=== PATIENT | female | born 1940 | race Caucasian/White ===

== ENCOUNTER 2020-11-04 07:42 | Outpatient (REF) | payer MEDICARE, SELFPAY ==
[2020-11-04 08:18] LABS: Basophils Percent Auto 0.9 % (0-2); Eosinophils Absolute Auto 0.4 X10*3/uL (0.0-0.4); Eosinophils Percent Auto 7.5 % (0-4); Hematocrit 40.1 % (37-47); Hemoglobin 13.2 g/dl (12.0-16.0); Imm Gran Abs Auto 0.01 X10*3/uL (0.00-0.03); Imm Gran Pct Auto 0.2 % (0.0-0.4); Lymphocytes Absolute Auto 1.6 X10*3/uL (1.2-4.9); Lymphocytes Percent Auto 33.3 % (20-40); MANUAL DIFF FLAG NO; Mean Corpuscular HGB Conc 32.9 g/dl (31.0-35.0); Mean Corpuscular Hemoglobin 31.3 pg (27.0-33.0); Mean Platelet Volume 10.3 fL (9.4-12.3); Monocytes Absolute Auto 0.4 X10*3/uL (0.1-1.2); Neutrophils Absolute Auto 2.3 X10*3/uL (2.0-8.3); Neutrophils Percent Auto 49.1 % (45-73); Platelet Count 197 X10*3/uL (160-400); Red Blood Count 4.22 X10*6/uL (4.20-5.50); Red Cell Distribution Width 13.1 % (11.0-16.0); White Blood Count 4.7 X10*3/uL (4.8-10.8)
[2020-11-04 09:28] LABS: Alanine Aminotransferase 35 U/L (0-31); Albumin Level 3.8 g/dL (3.5-5.0); Alkaline Phosphatase 65 U/L (39-117); Anion Gap 11 (12-20); Aspartate Amino Transferase 37 U/L (5-31); Bilirubin Total 1.5 mg/dL (0.0-1.0); Blood Urea Nitrogen 21 mg/dL (9-16); C Reactive Protein 0.13 mg/dL (< or = 0.50); Calcium 8.7 mg/dL (8.4-10.2); Carbon Dioxide 28 mmol/L (22-29); Chloride 106 mmol/L (96-108); Cholesterol 160 mg/dL; Estimated Glomerular Filt Rate 49; Glucose Fasting 133 mg/dL (60-99); HDL Cholesterol 52 mg/dL; LDL Cholesterol Calculated 84 mg/dl; Lipase < 4 U/L (8-78); Potassium 4.2 mmol/l (3.3-5.1); Sodium 141 mmol/L (135-145); Total Protein 6.2 g/dL (6.5-8.0); Triglycerides 121 mg/dL
== END 2020-11-04 07:43 | disposition home or self-care (01) ==
LOC: HO.LAB 07:42
PROVIDERS: PCP Internal Medicine; Visit Provider Internal Medicine
DX: I10 Essential (primary) hypertension (principal); J44.9 Chronic obstructive pulmonary disease, unspecified; E78.00 Pure hypercholesterolemia, unspecified; R10.9 Unspecified abdominal pain
CPT/HCPCS: 36415; 80053; 80061; 83690; 85025; 86140

== ENCOUNTER 2020-11-13 09:52 | Outpatient (REF) | payer MEDICARE, SELFPAY ==
--- NOTE | 2020-11-13 09:55 | CT_ITS ---
EXAMINATION: CT ABDOMEN WITHOUT AND WITH CONTRAST CLINICAL INFORMATION: Epigastric pain. History of gastric lap band. COMPARISON: Previous CT most recent December 2019 TECHNIQUE: Contiguous axial thin section helical images of the abdomen were performed before and after the administration of oral contrast and 85 mL of Omnipaque 350 intravenous contrast. The data set was reformatted in the coronal and sagittal planes and reviewed on an independent workstation. This CT examination was performed using dose optimization techniques as appropriate, variously including the following: *Automated exposure control *Adjustment of mA and/or kV according to patient size (this includes techniques or standardized protocols for targeted exams where dose is matched to indication/reason for exam; i.e. extremities or head) *Use of iterative reconstruction technique DLP: 419 mGy-cm FINDINGS: LUNG BASES: The lung bases are clear. LIVER, GALLBLADDER, AND BILIARY TREE: The liver is unremarkable. No focal liver lesion. Normal gallbladder. No biliary duct dilatation. PANCREAS: There is atrophy or fatty infiltration of the head and body of the pancreas. There is remaining pancreatic tissue seen in the tail of the pancreas. There is an enhancing lesion in the tail of the pancreas measuring 6 x 10 mm axial image 18 series 7. This abuts the splenic artery and may represent small splenic artery aneurysm. It is difficult to exclude an enhancing hypervascular mass such as an islet cell neoplasm. This is similar appearing to December 2019 exam. The main pancreatic duct does not appear dilated. SPLEEN: Unremarkable ADRENAL GLANDS AND KIDNEYS: Unremarkable BOWEL LOOPS: There is a gastric lap band. The phi angle measures 57 which is upper limit of normal. There is wall thickening of the distal thoracic esophagus versus esophageal hernia. This is increased compared to previous exam. There is mild diverticulosis of the colon. Visualized small and large bowel is otherwise unremarkable. LYMPH NODES: Normal. VASCULAR: There is evidence of severe atherosclerotic disease. The abdominal aorta is normal in caliber. There is BONES: There are degenerative changes of the spine. CT/CT abdomen wo/w con IMPRESSION: Gastric lap band. The phi angle measures 57 which is upper limit of normal. Wall thickening of the distal thoracic esophagus versus esophageal hernia. Atrophic head and body of the pancreas. 6 x 10 mm enhancing area in the tail of the pancreas immediately adjacent to the splenic artery probably representing a small splenic artery aneurysm. It is difficult to exclude an enhancing pancreatic lesion such as an islet cell neoplasm. Follow-up abdominal CTA is recommended. Severe atherosclerotic disease. Mild diverticulosis.
[2020-11-13] MEDS: iohexoL 350 MG/ML 100 ML INFUS..BTL 85 ML IV (10:50)
== END 2020-11-13 09:53 | disposition home or self-care (01) ==
LOC: HO.CT 09:52
PROVIDERS: PCP Internal Medicine; Visit Provider Internal Medicine
DX: R10.816 Epigastric abdominal tenderness (principal); Z98.84 Bariatric surgery status
CPT/HCPCS: 74170; Q9967

== ENCOUNTER 2020-12-09 14:47 | Outpatient (REF) | payer MEDICARE, SELFPAY ==
[2020-12-09 15:30] LABS: Alanine Aminotransferase 27 U/L (0-31); Albumin Level 4.2 g/dL (3.5-5.0); Alkaline Phosphatase 77 U/L (39-117); Aspartate Amino Transferase 36 U/L (5-31); Bilirubin Direct 0.6 mg/dL (0.0-0.5); Bilirubin Total 1.8 mg/dL (0.0-1.0); Blood Urea Nitrogen 20 mg/dL (9-16); Estimated Glomerular Filt Rate 51; Lipase < 4 U/L (8-78); Total Protein 6.8 g/dL (6.5-8.0)
[2020-12-11 11:38] LABS: Carbohydrate Antigen 19-9 9 U/mL (<34)
== END 2020-12-09 14:48 | disposition home or self-care (01) ==
LOC: HO.LAB 14:47
PROVIDERS: PCP Internal Medicine; Visit Provider Internal Medicine
DX: R93.5 Abnormal findings on diagnostic imaging of other abdominal regions, including retroperitoneum (principal)
CPT/HCPCS: 36415; 80076; 82565; 83690; 84520; 86301

== ENCOUNTER 2020-12-22 10:05 | Outpatient (REF) | payer MEDICARE, SELFPAY ==
--- NOTE | ~2020-12-22 | CT_ITS ---
EXAMINATION: CT ANGIOGRAM ABDOMEN CLINICAL INFORMATION: Question of splenic artery aneurysm versus pancreatic lesion COMPARISON: Previous CT scans of the abdomen and pelvis most recent November 2020 TECHNIQUE: Multiple axial images were obtained through the abdomen following the administration of 80 mL Omnipaque 350 intravenous contrast. Images were reviewed on a dedicated 3-D workstation. This CT examination was performed using dose optimization techniques as appropriate, variously including the following: *Automated exposure control *Adjustment of mA and/or kV according to patient size (this includes techniques or standardized protocols for targeted exams where dose is matched to indication/reason for exam; i.e. 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 No other aneurysm is seen. The lung bases are clear. The liver and gallbladder are unremarkable. There is no biliary duct dilatation. The spleen is unremarkable. There are atrophic changes/fatty infiltration of the pancreas. The pancreas is otherwise unremarkable. The kidneys are unremarkable. There is stool throughout the colon questionable for constipation. There is a gastric lap band. This is unchanged in position from November 2020 exam. There is question of mild wall thickening of the distal thoracic esophagus. No hernia is seen. No ascites or lymphadenopathy is seen. There is severe degenerative changes of the spine. Vascular: There is evidence of atherosclerotic disease of the abdominal aorta. No aneurysm is seen. The celiac axis, SMA and INEZ are patent. There is atherosclerotic plaque and mild stenoses at the origin of the celiac axis, SMA and INEZ. There are single bilateral renal arteries. There are mild stenoses at the origin of the bilateral renal arteries, left greater than right. 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 Fatty infiltration of the pancreas. No pancreatic lesion seen. Stable appearance of gastric lap band and question wall thickening of the distal thoracic esophagus. Stool throughout the colon questionable for constipation.
[2020-12-22] MEDS: iohexoL 350 MG/ML 100 ML INFUS..BTL 80 ML IV (10:38)
== END 2020-12-22 10:06 | disposition home or self-care (01) ==
LOC: HO.CT 10:05
PROVIDERS: PCP Internal Medicine; Visit Provider Internal Medicine
DX: R93.5 Abnormal findings on diagnostic imaging of other abdominal regions, including retroperitoneum (principal)
CPT/HCPCS: 74175; Q9967

== ENCOUNTER 2021-01-25 10:23 | Outpatient (REF) | payer MEDICARE, SELFPAY ==
--- NOTE | ~2021-01-25 | US_ITS ---
EXAMINATION: US EXTRACRANIAL CAROTID DUPLEX, BILATERAL CLINICAL INFORMATION: Left carotid bruit COMPARISON: None TECHNIQUE: Real-time ultrasound and Doppler techniques (integrating B-mode 2-D vascular images, Doppler spectral analysis and color-flow Doppler imaging) were utilized to interrogate the extracranial carotid arteries, the vertebral arteries and proximal subclavian arteries bilaterally. The degree of stenosis is determined by criteria similar to NASCET. FINDINGS: Right Side: 1. There is minimal soft atherosclerotic plaque seen in the bifurcation/proximal ICA region. 2. The common carotid artery PSV proximally is 77.9 cm/s and distally 80.7 cm/s. 3. The proximal internal carotid artery velocities are 64.4 cm/s systolic and 15.2 cm/s diastolic. 4. The proximal external carotid artery PSV is 111 cm/s. 5. The vertebral artery shows antegrade flow. 6. The subclavian artery waveforms are normal. Left Side: 1. There is minimal soft atherosclerotic plaque seen in the bifurcation/proximal ICA region. 2. The common carotid artery PSV proximally is 71.1 cm/s and distally 76.4 cm/s. 3. The proximal internal carotid artery velocities are 53.7 cm/s systolic and 13.3 cm/s diastolic. 4. The proximal external carotid artery PSV is 61.6 cm/s. 5. The vertebral artery shows antegrade flow. 6. The subclavian artery waveforms are normal. US/US carotid duplex BI IMPRESSION: 1. RIGHT: No hemodynamically significant stenosis seen. 2. LEFT: No hemodynamically significant stenosis seen. 3. There is normal antegrade flow seen in both vertebral arteries.
== END 2021-01-25 10:24 | disposition home or self-care (01) ==
LOC: HO.US 10:23
PROVIDERS: Visit Provider Internal Medicine
DX: R09.89 Other specified symptoms and signs involving the circulatory and respiratory systems (principal)
CPT/HCPCS: 93880

== ENCOUNTER 2021-04-07 09:04 | Outpatient (REF) | payer MEDICARE, SELFPAY ==
--- NOTE | ~2021-04-07 | MM_ITS ---
EXAMINATION: MM SCREENING DIGITAL BREAST TOMOSYNTHESIS, BILATERAL CLINICAL INFORMATION: Screening. Asymptomatic. The lifetime risk of breast cancer based on the Tyrer-Cuzick Model is 2%. COMPARISON: Mammography: 11/22/2019, 09/25/2018, 09/19/2017 TECHNIQUE: Digital breast tomosynthesis is performed in both the craniocaudal and mediolateral oblique views along with computer-aided detection (CAD). Synthesized 2D images are generated from the tomosynthesis. FINDINGS: There are scattered areas of fibroglandular density (ACR BI-RADS breast composition Category b). There are no significant masses, abnormal calcifications, or other abnormalities. The axilla and skin contours are unremarkable. No significant changes. MM/MM tomosynthesis screening BI IMPRESSION: No mammographic evidence of malignancy. ASSESSMENT: BI-RADS 1: Negative RECOMMENDATION: Routine annual mammography screening. This patient's information was entered into a reminder system with a target due date for their next mammogram.
== END 2021-04-07 09:05 | disposition home or self-care (01) ==
LOC: HO.MAMMO 09:04
PROVIDERS: Visit Provider Internal Medicine
DX: Z12.31 Encounter for screening mammogram for malignant neoplasm of breast (principal)
CPT/HCPCS: 77063; 77067

== ENCOUNTER 2021-04-15 08:53 | Outpatient (REF) | payer MEDICARE, SELFPAY ==
[2021-04-15 10:07] LABS: Hematocrit 38.6 % (37-47); Hemoglobin 12.4 g/dl (12.0-16.0); Mean Corpuscular HGB Conc 32.1 g/dl (31.0-35.0); Mean Corpuscular Hemoglobin 30.9 pg (27.0-33.0); Mean Corpuscular Volume 96.3 fL (80-98); Mean Platelet Volume 10.6 fL (9.4-12.3); Platelet Count 215 X10*3/uL (160-400); Red Blood Count 4.01 X10*6/uL (4.20-5.50); Red Cell Distribution Width 13.4 % (11.0-16.0); White Blood Count 5.5 X10*3/uL (4.8-10.8)
[2021-04-15 10:12] LABS: Estimated Average Glucose 128 mg/dL; Hemoglobin A1c % 6.1 %
[2021-04-15 10:21] LABS: Alanine Aminotransferase 20 U/L (0-31); Alkaline Phosphatase 82 U/L (39-117); Anion Gap 11 (12-20); Aspartate Amino Transferase 30 U/L (5-31); Bilirubin Direct 0.4 mg/dL (0.0-0.5); Bilirubin Total 1.1 mg/dL (0.0-1.0); Blood Urea Nitrogen 31 mg/dL (9-16); Calcium 9.2 mg/dL (8.4-10.2); Carbon Dioxide 28 mmol/L (22-29); Chloride 107 mmol/L (96-108); Cholesterol 165 mg/dL; Estimated Glomerular Filt Rate 40; Glucose Random 121 mg/dL (60-115); HDL Cholesterol 54 mg/dL; LDL Cholesterol Calculated 93 mg/dl; Magnesium 2.6 mg/dL (1.6-2.6); Potassium 4.6 mmol/L (3.3-5.1); Sodium 141 mmol/L (135-145); Total Protein 6.4 g/dL (6.5-8.0); Triglycerides 93 mg/dL
== END 2021-04-15 08:54 | disposition home or self-care (01) ==
LOC: HO.LAB 08:53
PROVIDERS: Absent Provider Internal Medicine; PCP Internal Medicine; Visit Provider Internal Medicine Cardiovascular Disease
DX: E78.2 Mixed hyperlipidemia (principal); I10 Essential (primary) hypertension; I25.810 Atherosclerosis of coronary artery bypass graft(s) without angina pectoris; R73.01 Impaired fasting glucose
CPT/HCPCS: 36415; 80048; 80061; 80076; 83036; 83735; 85027

== ENCOUNTER 2021-04-30 14:50 | Outpatient (REF) | payer MEDICARE, SELFPAY ==
[2021-04-30 15:11] LABS: MANUAL DIFF FLAG NO
[2021-04-30 15:19] LABS: Basophils Percent Auto 0.7 % (0-2); Eosinophils Absolute Auto 0.5 X10*3/uL (0.0-0.4); Eosinophils Percent Auto 7.5 % (0-4); Hematocrit 36.8 % (37-47); Hemoglobin 12.1 g/dl (12.0-16.0); Imm Gran Abs Auto 0.02 X10*3/uL (0.00-0.03); Imm Gran Pct Auto 0.3 % (0.0-0.4); Lymphocytes Absolute Auto 0.9 X10*3/uL (1.2-4.9); Lymphocytes Percent Auto 14.1 % (20-40); Mean Corpuscular HGB Conc 32.9 g/dl (31.0-35.0); Mean Corpuscular Hemoglobin 31.2 pg (27.0-33.0); Mean Corpuscular Volume 94.8 fL (80-98); Mean Platelet Volume 9.8 fL (9.4-12.3); Monocytes Absolute Auto 0.5 X10*3/uL (0.1-1.2); Monocytes Percent Auto 7.5 % (2-11); Neutrophils Absolute Auto 4.2 X10*3/uL (2.0-8.3); Neutrophils Percent Auto 69.9 % (45-73); Platelet Count 292 X10*3/uL (160-400); Red Blood Count 3.88 X10*6/uL (4.20-5.50); Red Cell Distribution Width 13.2 % (11.0-16.0)
[2021-04-30 15:36] LABS: Alanine Aminotransferase 37 U/L (0-31); Albumin Level 3.8 g/dL (3.5-5.0); Alkaline Phosphatase 112 U/L (39-117); Anion Gap 13 (12-20); Aspartate Amino Transferase 36 U/L (5-31); Bilirubin Total 1.1 mg/dL (0.0-1.0); Blood Urea Nitrogen 21 mg/dL (9-16); C Reactive Protein 3.79 mg/dL (< or = 0.50); Calcium 8.7 mg/dL (8.4-10.2); Carbon Dioxide 26 mmol/L (22-29); Chloride 106 mmol/L (96-108); Estimated Glomerular Filt Rate 34; Glucose Random 116 mg/dL (60-115); Potassium 4.7 mmol/L (3.3-5.1); Sodium 140 mmol/L (135-145); Total Protein 6.8 g/dL (6.5-8.0)
[2021-04-30 16:16] LABS: Vitamin B12 1194 pg/mL (200-900)
== END 2021-04-30 14:51 | disposition home or self-care (01) ==
LOC: HO.LAB 14:50
PROVIDERS: PCP Internal Medicine; Visit Provider Internal Medicine
DX: R42 Dizziness and giddiness (principal); R21 Rash and other nonspecific skin eruption; I12.9 Hypertensive chronic kidney disease with stage 1 through stage 4 chronic kidney disease, or unspecified chronic kidney disease; N18.9 Chronic kidney disease, unspecified; J44.9 Chronic obstructive pulmonary disease, unspecified; J18.9 Pneumonia, unspecified organism
CPT/HCPCS: 36415; 80053; 82607; 85025; 86140

== ENCOUNTER 2021-05-07 11:21 | Outpatient (REF) | payer MEDICARE, SELFPAY ==
--- NOTE | ~2021-05-07 | XR_ITS ---
EXAMINATION: LUMBAR SACRAL SPINE SERIES. PELVIC SERIES. CLINICAL INFORMATION: Pelvic pain back pain COMPARISON: X-ray lumbar sacral spine June 2014 TECHNIQUE: 3 views of lumbar sacral spine. Single view the pelvis FINDINGS: Lumbar sacral spine series: Vertebral bodies normally aligned. L2-3 there is advanced degenerative disc changes which has progressed compared to prior manifested by progressing disc space narrowing endplate osteophytes and endplate sclerosis. There is stable advanced degenerative disc changes at L5-S1 with disc space narrowing endplate osteophytes. Additional mild degenerative disc changes noted in the remaining disc levels with endplate osteophytes without joint space narrowing noted. Facet arthrosis noted from L2-3 through L5-S1 unchanged. Spondylosis is also noted in the partially visualized dorsal spine slightly increased compared to prior. There is no fracture or bone lesion.. Pelvis: Degenerative changes of the symphysis pubis. Calcific atherosclerotic changes noted. Linear radiopaque metallic appearing density overlies the left sacrum Bones joints and soft tissues otherwise normal. XR/XR pelvis 1-2V IMPRESSION: Lumbar sacral spine: Spondylosis slightly progressed compared with June 2014. Pelvis: Degenerative changes of the symphysis pubis Radiopaque density overlies the pelvis of uncertain etiology and significance location not clear if may well be outside the patient has not clearly seen on the lateral view of the lumbar sacral spine
--- NOTE | ~2021-05-07 | XR_ITS ---
EXAMINATION: LUMBAR SACRAL SPINE SERIES. PELVIC SERIES. CLINICAL INFORMATION: Pelvic pain back pain COMPARISON: X-ray lumbar sacral spine June 2014 TECHNIQUE: 3 views of lumbar sacral spine. Single view the pelvis FINDINGS: Lumbar sacral spine series: Vertebral bodies normally aligned. L2-3 there is advanced degenerative disc changes which has progressed compared to prior manifested by progressing disc space narrowing endplate osteophytes and endplate sclerosis. There is stable advanced degenerative disc changes at L5-S1 with disc space narrowing endplate osteophytes. Additional mild degenerative disc changes noted in the remaining disc levels with endplate osteophytes without joint space narrowing noted. Facet arthrosis noted from L2-3 through L5-S1 unchanged. Spondylosis is also noted in the partially visualized dorsal spine slightly increased compared to prior. There is no fracture or bone lesion.. Pelvis: Degenerative changes of the symphysis pubis. Calcific atherosclerotic changes noted. Linear radiopaque metallic appearing density overlies the left sacrum Bones joints and soft tissues otherwise normal. XR/XR lumbar spine 2-3V IMPRESSION: Lumbar sacral spine: Spondylosis slightly progressed compared with June 2014. Pelvis: Degenerative changes of the symphysis pubis Radiopaque density overlies the pelvis of uncertain etiology and significance location not clear if may well be outside the patient has not clearly seen on the lateral view of the lumbar sacral spine
[2021-05-07 13:02] LABS: Anion Gap 13 (12-20); Blood Urea Nitrogen 28 mg/dL (9-16); Calcium 8.9 mg/dL (8.4-10.2); Carbon Dioxide 27 mmol/L (22-29); Chloride 103 mmol/L (96-108); Estimated Glomerular Filt Rate 39; Glucose Random 130 mg/dL (60-115); Potassium 4.6 mmol/L (3.3-5.1); Sodium 138 mmol/L (135-145)
== END 2021-05-07 11:22 | disposition home or self-care (01) ==
LOC: HO.LAB 11:21
PROVIDERS: PCP Internal Medicine; Visit Provider Internal Medicine
DX: R10.2 Pelvic and perineal pain (principal); M54.9 Dorsalgia, unspecified
CPT/HCPCS: 36415; 72100; 72170; 80048

== ENCOUNTER 2021-06-01 11:01 | Outpatient (REF) | payer MEDICARE, SELFPAY ==
--- NOTE | ~2021-06-01 | XR_ITS ---
EXAMINATION: XR SHOULDER, LEFT CLINICAL INFORMATION: M25.519 - Pain in unspecified shoulder COMPARISON: Radiographs sternum 01/05/2015. TECHNIQUE: Left shoulder is imaged in 3 views. FINDINGS: The surgical fracture, dislocation, destructive process. No visible rotator cuff calcifications. There is small spur inferior medial humeral head. No narrowing or erosive change glenohumeral joint. The acromioclavicular alignment is normal. There are sternotomy wires and mediastinal clips and scattered benign calcifications overlie the chest. XR/XR shoulder LT min 2V IMPRESSION: Small spur inferior medial humeral head. No visible rotator cuff calcifications.
== END 2021-06-01 11:02 | disposition home or self-care (01) ==
LOC: HO.HOSX 11:01
PROVIDERS: PCP Internal Medicine; Visit Provider Physician Assistant
DX: M75.42 Impingement syndrome of left shoulder (principal); M19.012 Primary osteoarthritis, left shoulder
CPT/HCPCS: 20610; 73030; 99202; J1040

== ENCOUNTER 2021-06-10 10:40 | Outpatient (RCR) | payer MEDICARE, SELFPAY | END 2021-11-22 09:35 | disposition home or self-care (01) | LOC: HO.PTWFD 10:40 | PROVIDERS: PCP Internal Medicine; Visit Provider Physician Assistant | DX: M75.42 Impingement syndrome of left shoulder (principal) | CPT/HCPCS: 97110; 97161; 97535 ==

== ENCOUNTER 2021-08-06 10:33 | Outpatient (REF) | payer MEDICARE, SELFPAY ==
[2021-08-06 13:56] LABS: MANUAL DIFF FLAG NO
[2021-08-06 14:04] LABS: Basophils Absolute Auto 0.1 X10*3/uL (0.0-0.2); Eosinophils Absolute Auto 0.4 X10*3/uL (0.0-0.4); Eosinophils Percent Auto 7.5 % (0-4); Hematocrit 38.8 % (37-47); Hemoglobin 12.4 g/dl (12.0-16.0); Imm Gran Abs Auto 0.01 X10*3/uL (0.00-0.03); Imm Gran Pct Auto 0.2 % (0.0-0.4); Lymphocytes Absolute Auto 2.2 X10*3/uL (1.2-4.9); Mean Corpuscular Hemoglobin 30.1 pg (27.0-33.0); Mean Corpuscular Volume 94.2 fL (80-98); Mean Platelet Volume 10.3 fL (9.4-12.3); Monocytes Absolute Auto 0.3 X10*3/uL (0.1-1.2); Monocytes Percent Auto 5.9 % (2-11); Neutrophils Absolute Auto 2.7 X10*3/uL (2.0-8.3); Neutrophils Percent Auto 47.4 % (45-73); Platelet Count 219 X10*3/uL (160-400); Red Blood Count 4.12 X10*6/uL (4.20-5.50); Red Cell Distribution Width 13.8 % (11.0-16.0); White Blood Count 5.7 X10*3/uL (4.8-10.8)
[2021-08-06 14:17] LABS: Alanine Aminotransferase 28 U/L (0-31); Albumin Level 3.9 g/dL (3.5-5.0); Alkaline Phosphatase 85 U/L (39-117); Anion Gap 12 (12-20); Aspartate Amino Transferase 35 U/L (5-31); Bilirubin Total 1.7 mg/dL (0.0-1.0); Blood Urea Nitrogen 21 mg/dL (9-16); Calcium 8.9 mg/dL (8.4-10.2); Carbon Dioxide 27 mmol/L (22-29); Chloride 106 mmol/L (96-108); Estimated Glomerular Filt Rate 48; Glucose Random 118 mg/dL (60-115); Potassium 4.1 mmol/L (3.3-5.1); Sodium 141 mmol/L (135-145); Total Protein 6.8 g/dL (6.5-8.0)
[2021-08-06 14:36] LABS: Creatinine Urine 24.62 mg/dL; Microalbumin Urine < 5.0 mg/L
[2021-08-06 14:41] LABS: Vitamin D 25-OH Total 32.6 ng/mL (>30)
[2021-08-06 14:48] LABS: Estimated Average Glucose 123 mg/dL; Hemoglobin A1c % 5.9 %
[2021-08-09 13:27] LABS: PTHI 60 pg/mL (14-64)
== END 2021-08-06 10:34 | disposition home or self-care (01) ==
LOC: HO.10HDL 10:33
PROVIDERS: Visit Provider Internal Medicine
DX: I12.9 Hypertensive chronic kidney disease with stage 1 through stage 4 chronic kidney disease, or unspecified chronic kidney disease (principal); N18.9 Chronic kidney disease, unspecified; J44.9 Chronic obstructive pulmonary disease, unspecified; K21.9 Gastro-esophageal reflux disease without esophagitis
CPT/HCPCS: 36415; 80053; 82043; 82306; 83036; 83970; 85025

== ENCOUNTER 2021-10-12 13:15 | Outpatient (REF) | payer MEDICARE, SELFPAY ==
--- NOTE | ~2021-10-12 | XR_ITS ---
EXAMINATION: XR CHEST CLINICAL INFORMATION: Cough, COPD, asthma, Covid COMPARISON: 01/05/15 TECHNIQUE: 2 views of the chest were obtained. FINDINGS: Median sternotomy wires appear intact. The lungs are well expanded. There is no focal consolidation, edema, or effusion. No pneumothorax. The cardiomediastinal silhouette is within normal limits, with a calcified aorta. No acute osseous abnormality. Degenerative changes of the spine. XR/XR chest 2V IMPRESSION: Clear lungs.
[2021-10-12 14:27] LABS: Influenza A PCR NEGATIVE (Negative); Influenza B PCR NEGATIVE (Negative); Resp Syncy Virus RNA Qual PCR NEGATIVE (Negative); SARS COV2 PCR INHOUSE NEGATIVE (Negative)
== END 2021-10-12 13:16 | disposition home or self-care (01) ==
LOC: HO.XRAY 13:15
PROVIDERS: PCP Internal Medicine; Visit Provider Internal Medicine
DX: Z20.822 Contact with and (suspected) exposure to COVID-19 (principal); R05.9 Cough, unspecified; J44.9 Chronic obstructive pulmonary disease, unspecified
CPT/HCPCS: 0241U; 36415; 71046

== ENCOUNTER 2022-03-30 11:09 | Outpatient (REF) | payer MEDICARE, SELFPAY ==
[2022-03-30 13:25] LABS: MANUAL DIFF FLAG NO
[2022-03-30 13:29] LABS: Basophils Percent Auto 0.5 % (0-2); Eosinophils Absolute Auto 0.2 X10*3/uL (0.0-0.4); Eosinophils Percent Auto 3.9 % (0-4); Hematocrit 38.4 % (37.0-47.0); Hemoglobin 12.2 g/dl (12.0-16.0); Imm Gran Abs Auto 0.01 X10*3/uL (0.00-0.03); Imm Gran Pct Auto 0.2 % (0.0-0.4); Lymphocytes Absolute Auto 1.6 X10*3/uL (1.2-4.9); Lymphocytes Percent Auto 26.6 % (20-40); Mean Corpuscular HGB Conc 31.8 g/dl (31.0-35.0); Mean Corpuscular Hemoglobin 29.5 pg (27.0-33.0); Mean Platelet Volume 10.7 fL (9.4-12.3); Monocytes Absolute Auto 0.4 X10*3/uL (0.1-1.2); Monocytes Percent Auto 7.2 % (2-11); Neutrophils Absolute Auto 3.8 x10*3/uL (2.0-8.3); Neutrophils Percent Auto 61.6 % (45-73); Platelet Count 220 X10*3/uL (160-400); Red Blood Count 4.13 X10*6/uL (4.20-5.50); White Blood Count 6.1 X10*3/uL (4.8-10.8)
[2022-03-30 13:42] LABS: Alanine Aminotransferase 19 U/L (0-31); Albumin Level 3.7 g/dL (3.5-5.0); Alkaline Phosphatase 72 U/L (39-117); Anion Gap 13 (12-20); Aspartate Amino Transferase 29 U/L (5-31); Bilirubin Total 1.8 mg/dL (0.0-1.0); Blood Urea Nitrogen 17 mg/dL (9-16); Calcium 9.1 mg/dL (8.4-10.2); Carbon Dioxide 25 mmol/L (22-29); Chloride 104 mmol/L (96-108); Estimated Glomerular Filt Rate 45; Glucose Random 119 mg/dL (60-115); Potassium 4.5 mmol/L (3.3-5.1); Sodium 137 mmol/L (135-145); Total Protein 6.7 g/dL (6.5-8.0)
[2022-03-30 14:03] LABS: Estimated Average Glucose 131 mg/dL; Hemoglobin A1c % 6.2 %
== END 2022-03-30 11:10 | disposition home or self-care (01) ==
LOC: HO.10HDL 11:09
PROVIDERS: Visit Provider Internal Medicine
DX: K21.9 Gastro-esophageal reflux disease without esophagitis (principal); I25.10 Atherosclerotic heart disease of native coronary artery without angina pectoris; R73.03 Prediabetes; I12.9 Hypertensive chronic kidney disease with stage 1 through stage 4 chronic kidney disease, or unspecified chronic kidney disease; N18.9 Chronic kidney disease, unspecified
CPT/HCPCS: 36415; 80053; 83036; 85025

== ENCOUNTER 2022-04-19 09:54 | Outpatient (REF) | payer MEDICARE, SELFPAY ==
--- NOTE | ~2022-04-19 | MM_ITS ---
EXAMINATION: MM SCREENING DIGITAL BREAST TOMOSYNTHESIS, BILATERAL CLINICAL INFORMATION: Screening. Asymptomatic. The lifetime risk of breast cancer based on the Tyrer-Cuzick Model is 1%. COMPARISON: Mammography: 04/07/2021, 11/22/2019, 09/25/2018 TECHNIQUE: Digital breast tomosynthesis is performed in both the craniocaudal and mediolateral oblique views along with computer-aided detection (CAD). Synthesized 2D images are generated from the tomosynthesis. FINDINGS: There are scattered areas of fibroglandular density (ACR BI-RADS breast composition Category b). There are no significant masses, abnormal calcifications, or other abnormalities. Parenchymal pattern is similar to prior studies. No developing density. No significant changes. MM/MM tomosynthesis screening BI IMPRESSION: No mammographic evidence of malignancy. ASSESSMENT: BI-RADS 1: Negative RECOMMENDATION: Routine annual mammography screening. This patient's information was entered into a reminder system with a target due date for their next mammogram.
== END 2022-04-19 09:55 | disposition home or self-care (01) ==
LOC: HO.MAMMO 09:54
PROVIDERS: Visit Provider Internal Medicine
DX: Z12.31 Encounter for screening mammogram for malignant neoplasm of breast (principal)
CPT/HCPCS: 77063; 77067

== ENCOUNTER 2022-08-04 16:42 | Outpatient (REF) | payer MEDICARE, SELFPAY ==
--- NOTE | ~2022-08-04 | XR_ITS ---
EXAMINATION: XR KNEE, RIGHT XR KNEE, LEFT XR KNEE AP STANDING CLINICAL INFORMATION: Pain. COMPARISON: Prior radiographs, most recently 12/06/2019. TECHNIQUE: Lateral and axial of the right knee. Lateral and axial of the left knee. AP bilateral standing view of the knees was obtained. FINDINGS: Prosthetic components of the bilateral total knee arthroplasties are appropriately aligned without periprosthetic fracture or lucency. No component migration. No joint effusion is seen bilaterally. There is no significant varus or valgus configuration noted bilaterally. XR/XR knee RT 2V IMPRESSION: Appropriate alignment of the bilateral total knee arthroplasties, without evidence of complications.
--- NOTE | ~2022-08-04 | XR_ITS ---
EXAMINATION: XR KNEE, RIGHT XR KNEE, LEFT XR KNEE AP STANDING CLINICAL INFORMATION: Pain. COMPARISON: Prior radiographs, most recently 12/06/2019. TECHNIQUE: Lateral and axial of the right knee. Lateral and axial of the left knee. AP bilateral standing view of the knees was obtained. FINDINGS: Prosthetic components of the bilateral total knee arthroplasties are appropriately aligned without periprosthetic fracture or lucency. No component migration. No joint effusion is seen bilaterally. There is no significant varus or valgus configuration noted bilaterally. XR/XR knee standing BI IMPRESSION: Appropriate alignment of the bilateral total knee arthroplasties, without evidence of complications.
--- NOTE | ~2022-08-04 | XR_ITS ---
EXAMINATION: XR KNEE, RIGHT XR KNEE, LEFT XR KNEE AP STANDING CLINICAL INFORMATION: Pain. COMPARISON: Prior radiographs, most recently 12/06/2019. TECHNIQUE: Lateral and axial of the right knee. Lateral and axial of the left knee. AP bilateral standing view of the knees was obtained. FINDINGS: Prosthetic components of the bilateral total knee arthroplasties are appropriately aligned without periprosthetic fracture or lucency. No component migration. No joint effusion is seen bilaterally. There is no significant varus or valgus configuration noted bilaterally. XR/XR knee LT 2V IMPRESSION: Appropriate alignment of the bilateral total knee arthroplasties, without evidence of complications.
== END 2022-08-04 16:43 | disposition home or self-care (01) ==
LOC: HO.HOSX 16:42
PROVIDERS: Visit Provider Orthopaedic Surgery
DX: T84.032A Mechanical loosening of internal right knee prosthetic joint, initial encounter (principal)
CPT/HCPCS: 73560; 73565; 99212

== ENCOUNTER 2022-11-24 10:30 | Outpatient (REF) | payer MEDICARE, SELFPAY ==
[2022-11-24 11:07] LABS: Appearance Urine Cloudy; Color Urine Yellow; Glucose Urine UA Negative (Negative); Leukocyte Esterase Urine Moderate (2+) (Negative); Nitrite Urine Negative (Negative); PH 5.5 (5.0-9.0); UMIC TRIGGER UACC YES; Urine Blood Negative (Negative); Urine Ketones Negative (Negative); Urine Protein Negative (Neg-Trace)
[2022-11-24 11:10] LABS: Bacteria Urine 1+ (None Seen); RBC Urine 0-2 /HPF (0-2); UACC Culture Trigger YES
== END 2022-11-24 10:31 | disposition home or self-care (01) ==
LOC: HO.LAB 10:30
PROVIDERS: PCP Internal Medicine; Visit Provider Internal Medicine
DX: R30.0 Dysuria (principal)
CPT/HCPCS: 81001; 81003; 87086

== ENCOUNTER 2023-03-01 08:11 | Outpatient (REF) | payer MEDICARE, SELFPAY ==
[2023-03-01 08:26] LABS: MANUAL DIFF FLAG NO
[2023-03-01 09:01] LABS: Basophils Absolute Auto 0.1 X10*3/uL (0.0-0.2); Eosinophils Absolute Auto 0.4 X10*3/uL (0.0-0.4); Eosinophils Percent Auto 8.7 % (0-4); Hematocrit 41.1 % (37.0-47.0); Hemoglobin 13.3 g/dl (12.0-16.0); Imm Gran Abs Auto 0.01 X10*3/uL (0.00-0.03); Imm Gran Pct Auto 0.2 % (0.0-0.4); Lymphocytes Absolute Auto 1.7 X10*3/uL (1.2-4.9); Lymphocytes Percent Auto 33.7 % (20-40); Mean Corpuscular HGB Conc 32.4 g/dl (31.0-35.0); Mean Corpuscular Hemoglobin 30.2 pg (27.0-33.0); Mean Corpuscular Volume 93.4 fL (80.0-98.0); Mean Platelet Volume 10.6 fL (9.4-12.3); Monocytes Absolute Auto 0.4 X10*3/uL (0.1-1.2); Monocytes Percent Auto 8.7 % (2-11); Neutrophils Absolute Auto 2.4 x10*3/uL (2.0-8.3); Neutrophils Percent Auto 47.7 % (45-73); Platelet Count 219 X10*3/uL (160-400); Red Cell Distribution Width 14.3 % (11.0-16.0); White Blood Count 5.1 X10*3/uL (4.8-10.8)
[2023-03-01 09:16] LABS: Estimated Average Glucose 134 mg/dL; Hemoglobin A1c % 6.3 %
[2023-03-01 09:26] LABS: Alanine Aminotransferase 22 U/L (0-31); Albumin Level 3.9 g/dL (3.5-5.0); Alkaline Phosphatase 74 U/L (39-117); Anion Gap 12 (12-20); Aspartate Amino Transferase 30 U/L (5-31); Bilirubin Total 2.1 mg/dL (0.0-1.0); Blood Urea Nitrogen 16 mg/dL (9-16); Carbon Dioxide 29 mmol/L (22-29); Chloride 107 mmol/L (96-108); Cholesterol 179 mg/dL; Estimated Glomerular Filt Rate 52; Glucose Random 132 mg/dL (60-115); HDL Cholesterol 48 mg/dL; LDL Cholesterol Calculated 108 mg/dl; Potassium 4.6 mmol/L (3.3-5.1); Sodium 143 mmol/L (135-145); Total Protein 6.4 g/dL (6.5-8.0); Triglycerides 116 mg/dL
[2023-03-01 09:51] LABS: Appearance Urine Cloudy; Color Urine Yellow; Glucose Urine UA Negative (Negative); Leukocyte Esterase Urine Large (3+) (Negative); Nitrite Urine Positive (Negative); Specific Gravity - Urine 1.015 (1.005-1.025); UMIC TRIGGER UA YES; Urine Blood Trace (Negative); Urine Ketones Negative (Negative); Urine Protein Trace mg/dL (Neg-Trace)
[2023-03-01 09:56] LABS: Bacteria Urine 4+ (None Seen); Hyaline Casts Urine 0-2 /LPF (0-2); Squamous Epithelial Cell Urine 0-2 /HPF (0-2); WBC Urine >50 /HPF (0-5)
[2023-03-01 10:51] LABS: Creatinine Urine 123.46 mg/dL; Microalbum/Creatinine Ratio Ur 21.8 ug/mg cr
== END 2023-03-01 08:12 | disposition home or self-care (01) ==
LOC: HO.LAB 08:11
PROVIDERS: PCP Internal Medicine; Visit Provider Internal Medicine
DX: I25.10 Atherosclerotic heart disease of native coronary artery without angina pectoris (principal); R73.03 Prediabetes; I12.9 Hypertensive chronic kidney disease with stage 1 through stage 4 chronic kidney disease, or unspecified chronic kidney disease; N18.9 Chronic kidney disease, unspecified; J44.9 Chronic obstructive pulmonary disease, unspecified
CPT/HCPCS: 36415; 80053; 80061; 81001; 82043; 83036; 85025

== ENCOUNTER 2023-03-09 12:46 | Outpatient (REF) | payer MEDICARE, SELFPAY ==
--- NOTE | ~2023-03-09 | US_ITS ---
EXAMINATION: US EXTRACRANIAL CAROTID DUPLEX, BILATERAL CLINICAL INFORMATION: Carotid stenosis. COMPARISON: 01/25/2021. TECHNIQUE: Real-time ultrasound and Doppler techniques (integrating B-mode 2-D vascular images, Doppler spectral analysis and color-flow Doppler imaging) were utilized to interrogate the extracranial carotid arteries, the vertebral arteries and proximal subclavian arteries bilaterally. The degree of stenosis is determined by criteria similar to NASCET. FINDINGS: RIGHT SIDE: 1. There is no atherosclerotic plaque seen in the bifurcation/proximal ICA region. 2. The common carotid artery PSV proximally is 66 cm/s and distally 70 cm/s. 3. The proximal internal carotid artery velocities are 56 cm/s systolic and 12 cm/s diastolic. 4. The proximal external carotid artery PSV is 104 cm/s. 5. The vertebral artery shows antegrade flow. 6. The subclavian artery waveforms are normal. LEFT SIDE: 1. There is no atherosclerotic plaque seen in the bifurcation/proximal ICA region. 2. The common carotid artery PSV proximally is 78 cm/s and distally 45 cm/s. 3. The proximal internal carotid artery velocities are 42 cm/s systolic and 10 cm/s diastolic. 4. The proximal external carotid artery PSV is 39 cm/s. 5. The vertebral artery shows antegrade flow. 6. The subclavian artery waveforms are normal. US/US carotid duplex BI IMPRESSION: 1. RIGHT: Minimal, non-hemodynamically significant stenosis of the proximal right internal carotid artery corresponding to a 0-49% stenosis by velocity criteria. 2. LEFT: Minimal, non-hemodynamically significant stenosis of the proximal left internal carotid artery corresponding to a 0-49% stenosis by velocity criteria. 3. There is no change in the category severity of disease when compared to the previous study dated 01/25/2021.
== END 2023-03-09 12:47 | disposition home or self-care (01) ==
LOC: HO.US 12:46
PROVIDERS: Visit Provider Internal Medicine
DX: R09.89 Other specified symptoms and signs involving the circulatory and respiratory systems (principal)
CPT/HCPCS: 93880

== ENCOUNTER 2023-04-25 10:02 | Outpatient (REF) | payer MEDICARE, SELFPAY ==
--- NOTE | ~2023-04-25 | MM_ITS ---
EXAMINATION: MM SCREENING DIGITAL BREAST TOMOSYNTHESIS, BILATERAL CLINICAL INFORMATION: Screening. Asymptomatic. The lifetime risk of breast cancer based on the Tyrer-Cuzick Model is 1.7%. COMPARISON: Mammography: April 19, 2022 and studies dating back to July 08, 2015 TECHNIQUE: Digital breast tomosynthesis is performed in both the craniocaudal and mediolateral oblique views along with computer-aided detection (CAD). Synthesized 2D images are generated from the tomosynthesis. FINDINGS: There are scattered areas of fibroglandular density (ACR BI-RADS breast composition Category b). There are no significant masses, abnormal calcifications, or other abnormalities. MM/MM tomosynthesis screening BI IMPRESSION: No significant changes from prior exam. ASSESSMENT: BI-RADS 1: Negative RECOMMENDATION: Routine annual mammography screening. This patient's information was entered into a reminder system with a target due date for their next mammogram.
== END 2023-04-25 10:03 | disposition home or self-care (01) ==
LOC: HO.MAMMO 10:02
PROVIDERS: PCP Internal Medicine; Visit Provider Internal Medicine
DX: Z12.31 Encounter for screening mammogram for malignant neoplasm of breast (principal)
CPT/HCPCS: 77063; 77067

== ENCOUNTER 2023-06-16 11:49 | Outpatient (REF) | payer MEDICARE, SELFPAY ==
--- NOTE | ~2023-06-16 | CT_ITS ---
EXAMINATION: CT ABDOMEN AND PELVIS WITHOUT CONTRAST CLINICAL INFORMATION: Abdominal pain with question of diverticulitis. COMPARISON: CT angiography of the abdomen 12/22/2020, CT abdomen and pelvis 12/20/2019. TECHNIQUE: Multidetector volumetric imaging was performed from the superior aspect of the liver through the pubic symphysis. Sagittal and coronal reformatted images were obtained on the technologist's workstation. This CT examination was performed using dose optimization techniques as appropriate, variously including the following: *Automated exposure control *Adjustment of mA and/or kV according to patient size (this includes techniques or standardized protocols for targeted exams where dose is matched to indication/reason for exam; i.e. extremities or head) *Use of iterative reconstruction technique DLP: 532 mGy-cm FINDINGS: LUNG BASES: The visualized lung bases are unremarkable. LIVER, GALLBLADDER, AND BILIARY TREE: The liver is normal in size, shape, and attenuation. No focal hepatic lesion or biliary ductal dilatation is present. A small new dependent 4 mm gallstone is present without gallbladder wall thickening, or obvious pericholecystic inflammatory changes. PANCREAS: There is marked fatty atrophy of the pancreas. SPLEEN: Unremarkable. The previously seen 1.2 cm splenic artery aneurysm is not opacified on this exam and it is difficult to order dispatcher chief whether this has increased in size. ADRENAL GLANDS: Unremarkable. KIDNEYS AND URETERS: The kidneys are normal in size, shape, and attenuation. No hydronephrosis, hydroureter, or calculi seen. No perinephric stranding. BLADDER: Unremarkable. GASTROINTESTINAL TRACT: A hiatal hernia is present with gastric and esophageal wall thickening. Since 2020, a Lap-Band has been removed. Again noted are diverticular changes in the colon most prominent in the sigmoid. In the proximal sigmoid there is an area of some mild streaky change surrounding this which may represent early diverticulitis. No extraluminal air or drainable fluid collections are seen. The small and large bowel are otherwise unremarkable. The appendix is not seen but there is no evidence of appendicitis. ABDOMINAL WALL: No significant hernia is appreciated. LYMPH NODES: No retroperitoneal lymphadenopathy. VASCULAR: Severe calcific atherosclerotic change present in the aorta and iliac vessels. Eccentric calcification present in the right common iliac artery probably producing a stenosis. Marked calcification fills the lumen in the right common femoral artery also consistent with a stenosis. PELVIC VISCERA: The uterus is not seen. An abnormal adnexal mass or free intraperitoneal fluid not identified. OSSEOUS STRUCTURES: Degenerative changes are noted throughout the spine. CT/CT abdomen pelvis wo IV con IMPRESSION: 1. Colonic diverticulosis with possible early diverticulitis in the proximal sigmoid. 2. Incidental note made of new cholelithiasis without cholecystitis. 3. Interval removal of Lap-Band with hiatal hernia and gastric and esophageal wall thickening. 4. Severe atherosclerotic changes as described above. 5. Other incidental findings as described above. Fleischner guidelines were followed.
[2023-06-16] MEDS: Barium Sulfate Oral (Berry) 450 ML ORAL.SUSP 900 ML PO (14:39)
== END 2023-06-16 11:50 | disposition home or self-care (01) ==
LOC: HO.CT 11:49
PROVIDERS: PCP Internal Medicine; Visit Provider Internal Medicine
DX: K57.92 Diverticulitis of intestine, part unspecified, without perforation or abscess without bleeding (principal); R10.9 Unspecified abdominal pain
CPT/HCPCS: 74176

== ENCOUNTER 2024-01-02 16:05 | Outpatient (REF) | payer MEDICARE, SELFPAY ==
[2024-01-02 16:13] LABS: MANUAL DIFF FLAG NO
[2024-01-02 16:21] LABS: Basophils Absolute Auto 0.1 X10*3/uL (0.0-0.2); Basophils Percent Auto 0.9 % (0-2); Eosinophils Absolute Auto 0.2 X10*3/uL (0.0-0.4); Eosinophils Percent Auto 2.7 % (0-4); Hematocrit 38.6 % (37.0-47.0); Hemoglobin 13.1 g/dl (12.0-16.0); Imm Gran Abs Auto 0.01 X10*3/uL (0.00-0.03); Imm Gran Pct Auto 0.2 % (0.0-0.4); Lymphocytes Absolute Auto 2.2 X10*3/uL (1.2-4.9); Mean Corpuscular HGB Conc 33.9 g/dl (31.0-35.0); Mean Corpuscular Hemoglobin 31.3 pg (27.0-33.0); Mean Corpuscular Volume 92.1 fL (80.0-98.0); Mean Platelet Volume 10.2 fL (9.4-12.3); Monocytes Absolute Auto 0.6 X10*3/uL (0.1-1.2); Monocytes Percent Auto 8.7 % (2-11); Neutrophils Absolute Auto 3.5 x10*3/uL (2.0-8.3); Neutrophils Percent Auto 53.5 % (45-73); Platelet Count 265 X10*3/uL (160-400); Red Blood Count 4.19 X10*6/uL (4.20-5.50); Red Cell Distribution Width 13.3 % (11.0-16.0); White Blood Count 6.6 X10*3/uL (4.8-10.8)
[2024-01-02 16:31] LABS: Estimated Average Glucose 128 mg/dL; Hemoglobin A1c % 6.1 % (<6.0)
[2024-01-02 16:52] LABS: Alanine Aminotransferase 25 U/L (0-31); Albumin Level 4.1 g/dL (3.5-5.0); Alkaline Phosphatase 86 U/L (39-117); Anion Gap 12 (12-20); Aspartate Amino Transferase 30 U/L (5-31); Blood Urea Nitrogen 21 mg/dL (9-16); Calcium 9.4 mg/dL (8.4-10.2); Carbon Dioxide 27 mmol/L (22-29); Chloride 104 mmol/L (96-108); Estimated Glomerular Filt Rate 42; Glucose Random 115 mg/dL (60-115); Magnesium 2.3 mg/dL (1.6-2.6); Potassium 3.8 mmol/L (3.3-5.1); Sodium 139 mmol/L (135-145); Total Protein 7.1 g/dL (6.5-8.0)
== END 2024-01-02 16:06 | disposition home or self-care (01) ==
LOC: HO.LAB 16:05
PROVIDERS: PCP Internal Medicine; Visit Provider Internal Medicine
DX: I12.9 Hypertensive chronic kidney disease with stage 1 through stage 4 chronic kidney disease, or unspecified chronic kidney disease (principal); N18.9 Chronic kidney disease, unspecified; I25.10 Atherosclerotic heart disease of native coronary artery without angina pectoris; R00.2 Palpitations; R73.03 Prediabetes
CPT/HCPCS: 36415; 80053; 82550; 83036; 83735; 85025

== ENCOUNTER 2024-04-30 09:53 | Outpatient (REF) | payer MEDICARE, SELFPAY | END 2024-04-30 09:54 | disposition home or self-care (01) | LOC: HO.MAMMO 09:53 | PROVIDERS: PCP Internal Medicine; Visit Provider Internal Medicine | DX: Z12.31 Encounter for screening mammogram for malignant neoplasm of breast (principal) | CPT/HCPCS: 77063; 77067 ==

== ENCOUNTER → 2024-04-30 10:00 | Outpatient (BNV) | payer MEDICARE, SELFPAY | PROVIDERS: PCP Internal Medicine; Visit Provider Radiology Diagnostic Radiology | DX: Z12.31 Encounter for screening mammogram for malignant neoplasm of breast (principal) | CPT/HCPCS: 77063; 77067 ==

== ENCOUNTER 2024-06-06 09:51 | Outpatient (REF) | payer MEDICARE, SELFPAY ==
--- NOTE | ~2024-06-06 | XR_ITS ---
EXAMINATION: XR KNEE, LEFT CLINICAL INFORMATION: Pain. COMPARISON: Radiograph left knee 08/04/2022. TECHNIQUE: Three views of the left knee. FINDINGS: Prosthetic components of the bilateral total knee arthroplasties are appropriately aligned without periprosthetic fracture or abnormal lucency, with the caveat that evaluation of the right knee is limited due to single view. No component migration. No joint effusion. XR/XR knee LT 3V IMPRESSION: 1. Appropriate alignment of the left total knee arthroplasty without evidence of complications. 2. No acute fracture or subluxation.
== END 2024-06-06 09:52 | disposition home or self-care (01) ==
LOC: HO.HOSX 09:51
PROVIDERS: Visit Provider Orthopaedic Surgery
DX: M25.562 Pain in left knee (principal); Z91.81 History of falling; Z96.652 Presence of left artificial knee joint
CPT/HCPCS: 73562; 99212

== ENCOUNTER 2024-06-06 10:53 | Outpatient (AMB) | payer MEDICARE, SELFPAY ==
--- NOTE | 2024-06-06 11:15 | MHC.OFFVIS ---
Vital Signs 06/06/24 11:16 Height 5 ft 1 in Weight 172 lb BMI 32.5 Intake Visit Reasons: OV-left knee swelling/tender-fell 05/21/24 Intake Note: Kalli is an 83 year old female who presents today with concerns of left knee pain s/p fall 05/21/24. Hx of Left TKA 03/17/2014 KI. She was previously seen in July of 2022 where it was recommended that she have a revision arthroplasty. Patient reports that the knee continues to be painful and swollen since the fall. Allergies codeine [CODEINE] Allergy (Intermediate, Verified 06/06/24 11:17) JITTERY; NAUSEA latex [LATEX] Allergy (Intermediate, Verified 06/06/24 11:17) ITCHING; RASH tetracycline [Tetracycline] Allergy (Mild, Verified 06/06/24 11:17) DIFFICULTY BREASTHING/SWELLING Codeine Phosphate Allergy (Unknown, Uncoded 06/06/24 11:17) Unknown Latex Gloves Allergy (Unknown, Uncoded 06/06/24 11:17) Unknown HPI HPI OV-left knee swelling/tender-fell 05/21/24: Details: Kalli is an 83 year old female who presents today with concerns of left knee pain s/p fall 05/21/24. Hx of Left TKA 03/17/2014 KI. She was previously seen in July of 2022 where it was recommended that she have a revision arthroplasty. Patient reports that the knee continues to be painful and swollen since the fall. [facility] Medical History (Updated 08/04/22 @ 12:09 by Rodolfo Persaud MD) Hypercholesteremia Hypertension Surgical History (Updated 06/14/24 @ 11:11 by Rodolfo Persaud MD) H/O: hysterectomy (Unknown) History of right knee joint replacement History of left knee replacement (03/17/14) Social History Current occupational status: retired Current occupation: Right handed Physical Exam Vital Signs: BMI result Body Mass Index 32.5 Extrem Other: mild global ttp no focal ttp Results Reviewed Results Reviewed: I personally reviewed relevant radiographs. Left total knee arthroplasty in expected post operative position with no hardware complications or evidence of loosening Assessment & Plan Assessment & Plan (1) History of left knee replacement: Onset Date: 03/17/14 Code(s): Z96.652 - Presence of left artificial knee joint Category: Surgical Plan: Kalli is actually improving and she feels better. Her exam and radiographic findings are benign. May follow up prn. No intervention warranted at this time. Orders: Orders XR knee LT 3V 06/06/24 M25.562 - Pain in left knee Coding Level of Care Code Est Pt Level 3 (02109) Diagnoses History of left knee replacement Z96.652
[2024-06-06 11:16] VITALS: BMI 32.5
== END 2024-06-06 11:29 | disposition home or self-care (01) ==
PROVIDERS: PCP Internal Medicine; Visit Provider Orthopaedic Surgery
DX: M25.562 Pain in left knee (principal); Z96.652 Presence of left artificial knee joint; W19.XXXA Unspecified fall, initial encounter
CPT/HCPCS: 99213

== ENCOUNTER 2024-08-08 07:49 | Outpatient (REF) | payer MEDICARE, SELFPAY ==
[2024-08-08 08:06] LABS: MANUAL DIFF FLAG NO
[2024-08-08 08:52] LABS: Basophils Absolute Auto 0.1 X10*3/uL (0.0-0.2); Basophils Percent Auto 0.6 % (0-2); Eosinophils Absolute Auto 0.3 X10*3/uL (0.0-0.4); Eosinophils Percent Auto 2.4 % (0-4); Hematocrit 41.2 % (37.0-47.0); Hemoglobin 13.8 g/dl (12.0-16.0); Imm Gran Abs Auto 0.02 X10*3/uL (0.00-0.03); Imm Gran Pct Auto 0.2 % (0.0-0.4); Lymphocytes Absolute Auto 1.8 X10*3/uL (1.2-4.9); Lymphocytes Percent Auto 16.9 % (20-40); Mean Corpuscular HGB Conc 33.5 g/dl (31.0-35.0); Mean Corpuscular Hemoglobin 31.7 pg (27.0-33.0); Mean Corpuscular Volume 94.5 fL (80.0-98.0); Mean Platelet Volume 10.7 fL (9.4-12.3); Monocytes Absolute Auto 0.7 X10*3/uL (0.1-1.2); Monocytes Percent Auto 6.5 % (2-11); Neutrophils Absolute Auto 7.7 x10*3/uL (2.0-8.3); Neutrophils Percent Auto 73.4 % (45-73); Platelet Count 217 X10*3/uL (160-400); Red Blood Count 4.36 X10*6/uL (4.20-5.50); Red Cell Distribution Width 13.7 % (11.0-16.0); White Blood Count 10.4 X10*3/uL (4.8-10.8)
[2024-08-08 08:53] LABS: Estimated Average Glucose 128 mg/dL; Hemoglobin A1C 153.4987 umol/L; Hemoglobin A1c % 6.1 % (<6.0); Total Hemoglobin (HGBA1C) 3527.6148 umol/L
[2024-08-08 09:36] LABS: Creatinine Urine 29.06 mg/dL
[2024-08-08 09:40] LABS: Alanine Aminotransferase 30 U/L (0-31); Albumin Level 4.1 g/dL (3.5-5.0); Alkaline Phosphatase 91 U/L (39-117); Anion Gap 13 (12-20); Aspartate Amino Transferase 36 U/L (5-31); Bilirubin Total 1.4 mg/dL (0.0-1.0); Blood Urea Nitrogen 22 mg/dL (9-16); Calcium 9.8 mg/dL (8.4-10.2); Carbon Dioxide 29 mmol/L (22-29); Chloride 106 mmol/L (96-108); Cholesterol 168 mg/dL (<200); Estimated Glomerular Filt Rate 51; Glucose Fasting 137 mg/dL (60-99); HDL Cholesterol 50 mg/dL (>40); LDL Cholesterol Calculated 94 mg/dL (<100); Potassium 4.1 mmol/L (3.3-5.1); Sodium 144 mmol/L (135-145); Total Protein 7.2 g/dL (6.5-8.0); Triglycerides 123 mg/dL (<150)
== END 2024-08-08 07:50 | disposition home or self-care (01) ==
LOC: HO.LAB 07:49
PROVIDERS: PCP Internal Medicine; Visit Provider Internal Medicine
DX: E11.22 Type 2 diabetes mellitus with diabetic chronic kidney disease (principal); J44.9 Chronic obstructive pulmonary disease, unspecified; E78.00 Pure hypercholesterolemia, unspecified; I12.9 Hypertensive chronic kidney disease with stage 1 through stage 4 chronic kidney disease, or unspecified chronic kidney disease; N18.9 Chronic kidney disease, unspecified
CPT/HCPCS: 36415; 80053; 80061; 82043; 82306; 82570; 83036; 85025

== ENCOUNTER 2024-12-05 11:37 | Outpatient (REF) | payer MEDICARE, SELFPAY ==
[2024-12-05 12:03] LABS: MANUAL DIFF FLAG NO
[2024-12-05 12:19] LABS: Basophils Absolute Auto 0.1 X10*3/uL (0.0-0.2); Basophils Percent Auto 1.1 % (0-2); Eosinophils Absolute Auto 0.3 X10*3/uL (0.0-0.4); Hematocrit 40.3 % (37.0-47.0); Hemoglobin 13.3 g/dl (12.0-16.0); Imm Gran Abs Auto 0.02 X10*3/uL (0.00-0.03); Imm Gran Pct Auto 0.4 % (0.0-0.4); Lymphocytes Percent Auto 35.5 % (20-40); Mean Corpuscular Hemoglobin 30.7 pg (27.0-33.0); Mean Corpuscular Volume 93.1 fL (80.0-98.0); Mean Platelet Volume 10.7 fL (9.4-12.3); Monocytes Absolute Auto 0.5 X10*3/uL (0.1-1.2); Monocytes Percent Auto 8.1 % (2-11); Neutrophils Absolute Auto 2.8 x10*3/uL (2.0-8.3); Neutrophils Percent Auto 49.9 % (45-73); Platelet Count 209 X10*3/uL (160-400); Red Blood Count 4.33 X10*6/uL (4.20-5.50); Red Cell Distribution Width 13.2 % (11.0-16.0); White Blood Count 5.6 X10*3/uL (4.8-10.8)
[2024-12-05 13:07] LABS: Alanine Aminotransferase 45 U/L (0-31); Albumin Level 4.1 g/dL (3.5-5.0); Alkaline Phosphatase 79 U/L (39-117); Anion Gap 12 (12-20); Aspartate Amino Transferase 52 U/L (5-31); Bilirubin Total 1.8 mg/dL (0.0-1.0); Blood Urea Nitrogen 19 mg/dL (9-16); Calcium 9.1 mg/dL (8.4-10.2); Carbon Dioxide 29 mmol/L (22-29); Chloride 106 mmol/L (96-108); Estimated Glomerular Filt Rate 57; Glucose Random 121 mg/dL (60-115); Sodium 143 mmol/L (135-145); Total Protein 7.2 g/dL (6.5-8.0)
[2024-12-05 13:28] LABS: Estimated Average Glucose 134 mg/dL; Hemoglobin A1C 158.3455 umol/L; Hemoglobin A1c % 6.3 % (<6.0); Total Hemoglobin (HGBA1C) 3520.6758 umol/L
--- OUTSIDE RECORDS SUMMARY | 2024-12-05 15:35 | XMS_ITS | Patient Health Record ---
Author Organization [facility] Address [address] [place] [address] Care Team Providers Care Director Of Investigations Name Role Phone Noé Hardy MD Primary Care Provider Skyler Lira [phone] ALLERGIES Allergen (clinical drug ingredient) Drug/Non Drug Allergy documented on EMR Reaction Allergy Type Onset Date Status tetracycline Tetracycline HCl Unknown Drug Allergy Active Latex latex (uncoded) Unknown Allergy Acti ve REASON FOR REFERRAL No Information MEDICATIONS Medication SIG (Take, Route, Frequency, Duration) Notes Start Date End Date Status Carvedilol 12.5 MG as directed Orally t wice a day Active Vitamin C 500 MG 1 tablet Orally in the am Active Ezetimibe 10 MG 1 tablet Orally Once a day for 30 day(s) Active Temazepam 15 MG (Schedule IV Drug) T NICANOR 1 CAPSULE BY MOUTH EVERY NIGHT AT BEDTIME NEEDED Orally Once a day Active Rosuvastatin Calcium 40 MG 1 tablet Oral ly Once a day for 30 day(s) Active Aspirin Adult Low Strength 81 MG 1 tablet Orally QD Active [id number]-Aikinsqkw-BGGO 10-320-25 MG 1/2 tablet Orally Once a day Active IMMUNIZATIONS Vaccine Route Administration Date Status Comme nts Influenza Unknown 06/06/2019 Administered SOCIAL HISTORY Tobacco Use: Social History Observation Description Date Details (start date - stop date) Former Smoker NA - NA Sex Assigned At : Social History Observation Description Sex Assigned At Unknown Tobacco Use/Smoking Question Answer Notes Patient is a former smoker When did you stop smoking? 29 years ago Alcohol Screen Question Answer Notes Did you have a drink contain ing alcohol in the past year? Yes How often did you have a dri nk containing alcohol in the past year? 4 or more times a week (4 points) How many drinks did you have on a typical day when you were drinking in the past year? 1 or 2 drinks (0 point) How often did you have 6 or more drinks on one occasion in the past year? Never (0 point) Points 4 Interpretation Positive PROBLEMS Problem Type ICD Code Onset Dates Problem Status W/U Status Risk SNOMED Code Notes Problem Encounter for screening for malignant neoplasm of colon (Z12.11) Active confirmed 624296701 Problem Preprocedural examination (Z01.818) Active confirmed 928103500872901 Problem Long-term use of aspirin therapy (Z79.82) Active confirmed 780145963 Problem Abnormal CT of the abdomen (R93.5) Active confirmed CT of abdomen abnormal (07299751315014395 ) PLAN OF TREATMENT Pending Test Test Name Order Date BUN 12/09/2020 CREATININE 12/09/2020 LIVER PROFILE 12/09/2020 LIPASE 12/09/2020 CA 19-9 12/09/2020 CT angio abdomen 12/09/2020 Future Test Test Name Order Date COLONOSCOPY 06/06/2019 Insurance Providers Payer Name Payer Address Payer Phone Subscriber Number Group Number Insured Name Patient Relationship to Insured Coverage Start Date Coverage End Date [facility] [address] [place] [phone] [id number] Kalli Gonzales Self - patient is the insured MEDICAL (GENERAL) HISTORY Medical History History ICD Code SD in 2015 with 2V CABG Asthma Hypertension Hypercholesterolemia Urinary incontinence- mild Neg. screening colonoscopy in 10/2004 Denies DM,CVA,Lung disease,renal disease GERD-Neg EGD in 1994 except for a HH Neg screening colonoscopy in 07/2019 Surgical History Surgery Date(Month/Year) Knee replacement left 2012 2 V CABG 2016 Carpal tunnel right Hysterectomy Skin cancer on LE's Lap band 2004--Dr. Varela--los t 60#--band was deflated in 11/2019 due to UGI sx of N/V/GERD--much better after that Cataract surgery bilateal Hemorrhoids
== END 2024-12-05 11:38 | disposition home or self-care (01) ==
LOC: HO.10HDL 11:37
PROVIDERS: Visit Provider Internal Medicine
DX: J44.9 Chronic obstructive pulmonary disease, unspecified (principal); I25.10 Atherosclerotic heart disease of native coronary artery without angina pectoris; E11.9 Type 2 diabetes mellitus without complications; N18.9 Chronic kidney disease, unspecified; K21.9 Gastro-esophageal reflux disease without esophagitis
CPT/HCPCS: 36415; 80053; 83036; 85025

== ENCOUNTER 2025-03-21 10:46 | Outpatient (AMB) | payer MEDICARE, SELFPAY ==
--- NOTE | 2025-03-21 10:47 | MHC.PC.OV ---
Vital Signs 03/21/25 10:57 Height 5 ft 2 in Weight 174 lb BMI 31.8 BP 148/68 H Blood Pressure Location Lt brachial Position Sitting Respiration 16 Pulse 70 Pulse Source Pulse Oximeter Temp 98.6 F Temp Source Temporal Artery Scan Pulse Oximetry (%) 97 Oxygen Delivery Method Room Air Intake Visit Reasons: Routine Intake Note: patient here for routine follow up Community Coordinator Required: No Is last menstrual period known: No Post menopausal: No Patient : No Allergies codeine [CODEINE] Allergy (Intermediate, Verified 03/21/25 10:55) JITTERY; NAUSEA latex [LATEX] Allergy (Intermediate, Verified 03/21/25 10:55) ITCHING; RASH tetracycline [Tetracycline] Allergy (Mild, Verified 03/21/25 10:55) DIFFICULTY BREASTHING/SWELLING Codeine Phosphate Allergy (Unknown, Uncoded 06/06/24 11:17) Unknown Latex Gloves Allergy (Unknown, Uncoded 06/06/24 11:17) Unknown Tobacco use date assessed: 03/21/25 Fall risk assessment: 1 Fall in past year Last assessed Fall Risk: 03/21/25 Dental Screening Dental Screen Date: 03/21/25 Did you have a dental visit in the last 12 months?: No Did you have a dental problem in the last 6 months where you did not have access to dental care?: No Was dental information given to patient?: Patient has dentist HPI HPI Comments History of Present Illness Details 84 year old female with a past medical history of DM, CAD s/p CABG , hypertension, hyperlipidemia, COPD, GERD presenting for follow up DM: Last A1C 6.3. She has been stable off medications. CV: On amlodipine, coreg, valsartan, crestor. Follows with Dr Sy. Recent stress test normal. She has developed rash on the bilateral arms and fairly diffuse pruritus for the past 6 months. She does have elevated bilirubin but this seems to be chronic Mammo April 2024. Colonoscopy 2018 ROS CONSTITUTIONAL: Denies weight loss, fever and chills. HEENT: Denies changes in vision and hearing. RESPIRATORY: Denies SOB and cough. CV: Denies palpitations and CP GI: Denies abdominal pain, nausea, vomiting and diarrhea. : Denies dysuria and urinary frequency. MSK: Denies new myalgia and joint pain. SKIN: Denies rash and pruritus. NEUROLOGICAL: Denies headache PSYCHIATRIC: Denies recent changes in mood. PHYSICAL EXAM: GENERAL: Alert and oriented x 3. NAD EYES: EOMI. Anicteric. HENT: Moist mucous membranes. No scleral icterus. No cervical lymphadenopathy. LUNGS: Clear to auscultation bilaterally. CARDIOVASCULAR: Regular rate and rhythm. No murmur. No JVD. ABDOMEN: Soft, non-tender +bs EXTREMITIES: No edema. Non-tender. SKIN: No rashes or lesions. Warm. NEUROLOGIC: No focal neurological deficits. CN II-XII grossly intact PSYCHIATRIC: Cooperative. Appropriate mood and affect [facility] Medical History Hypercholesteremia Hypertension Surgical History History of colonoscopy (~08/02/19) H/O: hysterectomy (Unknown) History of right knee joint replacement History of left knee replacement (03/17/14) Social History Housing: Condominium Patient Tobacco Use Status: Former Tobacco user e-Cigarette/Vaping Use: Never Used Second Hand Smoke Exposure: No service: No Current occupational status: retired Current occupation: Right handed Cognitive needs: No Hearing needs: No Vision needs: Yes Physical exam (Primary Care) Vital Signs: Last Vital Signs Temp 98.6 F 03/21/25 10:57 Pulse 70 03/21/25 10:57 Resp 16 03/21/25 10:57 BP 148/68 H 03/21/25 10:57 Pulse Ox 97 03/21/25 10:57 Oxygen Delivery Method Room Air 03/21/25 10:57 BMI result Body Mass Index 31.8 Tobacco/Smoking Status: Tobacco use Status Tobacco use date assessed 03/21/25 03/21/25 10:58 Patient Tobacco Use Status Former Tobacco user 03/21/25 10:58 e-Cigarette/Vaping Use Never Used 03/21/25 10:58 Coding Level of Care Code New Pt Level 4 (27452) Complex EM visit Add On G2211 Diagnoses Primary hypertension I10 Hypertension type: primary hypertension Hypercholesteremia E78.00 Assessment & Plan Assessment & Plan (1) Hypertension: Code(s): I10 - Essential (primary) hypertension Category: Medical Qualifiers: Hypertension type: primary hypertension Qualified Code(s): I10 - Essential (primary) hypertension (2) Hypercholesteremia: Code(s): E78.00 - Pure hypercholesterolemia, unspecified Category: Medical Plan 84 year old to establish care Past medical, surgical, social reviewed Chronic medical conditions stable Continue cardiology follow up Orders: Orders MM screening mammo BI Today Z12.31 - Encounter for screening mammogram for malignant neoplasm of breast Complete Blood Count Auto Diff 3 Months E78.00 - Pure hypercholesterolemia, unspecified, I10 - Essential (primary) hypertension, L29.9 - Pruritus, unspecified, R17 - Unspecified jaundice Comprehensive Met. Panel 3 Months E78.00 - Pure hypercholesterolemia, unspecified, I10 - Essential (primary) hypertension, L29.9 - Pruritus, unspecified, R17 - Unspecified jaundice Hemoglobin A1c 3 Months E78.00 - Pure hypercholesterolemia, unspecified, I10 - Essential (primary) hypertension, L29.9 - Pruritus, unspecified, R17 - Unspecified jaundice Lipid Panel 3 Months E78.00 - Pure hypercholesterolemia, unspecified, I10 - Essential (primary) hypertension, L29.9 - Pruritus, unspecified, R17 - Unspecified jaundice TSH reflex Free T4 3 Months E78.00 - Pure hypercholesterolemia, unspecified, I10 - Essential (primary) hypertension, L29.9 - Pruritus, unspecified, R17 - Unspecified jaundice Bilirubin Direct Today L29.9 - Pruritus, unspecified, R17 - Unspecified jaundice Medications: New clobetasol 0.05% may pay out of pocket if not covered by insurance 1 appl topical .three times weekly 4 weeks 118 mL 3RF betamethasone dipropionate 0.05% 1 appl topical BID PRN 45 grams 3RF allergic reaction Refilled montelukast 10 mg PO DAILY 90 tabs 1RF
[2025-03-21 10:57] VITALS: BP 148/68; PULSE 70; RESP 16; TEMP 37; O2SAT 97; BMI 31.8
--- OUTSIDE RECORDS SUMMARY | 2025-03-21 11:19 | XMS_ITS | Patient Health Record ---
Author Organization [facility] Address [address] [place] [address] Care Team Providers Care Chairman & Chief Executive Officer Name Role Phone Noé Hardy MD Primary Care Provider Skyler Lira Unavailable [phone] Allergies Allergen (clinical drug ingredient) Drug/Non Drug Allergy documented on EMR Reaction Allergy Type Onset Date Status tetracycline Tetracycline HCl Unknown Drug Allergy Active Latex latex (uncoded) Unknown Allergy Acti ve Reason For Referral No Information Medications Medication SIG (Take, Route, Frequency, Duration) Notes Start Date End Date Status Carvedilol 12.5 MG as directed Orally t wice a day Active Vitamin C 500 MG 1 tablet Orally in the am Active Ezetimibe 10 MG 1 tablet Orally Once a day for 30 day(s) Active Temazepam 15 MG (Schedule IV Drug) T NICAONR 1 CAPSULE BY MOUTH EVERY NIGHT AT BEDTIME NEEDED Orally Once a day Active Rosuvastatin Calcium 40 MG 1 tablet Oral ly Once a day for 30 day(s) Active Aspirin Adult Low Strength 81 MG 1 tablet Orally QD Active zcJLZBSdmo-Ntrvvfjur-AHBZ 10-320-25 MG 1/2 tablet Orally Once a day Active Immunizations Vaccine Route Administration Date Status Comme nts Influenza Unknown 06/06/2019 Administered Social History Tobacco Use: Social History Observation Description Date Details (start date - stop date) Former Smoker NA - NA Tobacco Use/Smoking Question Answer Notes Patient is [...] Never (0 point) Points 4 Interpretation Positive Section Notes: Nonsmoker; 1 drink per day Nonsmoker; 1 drink per day Problems Problem Type SNOMED Code ICD Code Onset Dates Problem Status W/U Status Risk Notes Problem [id number] Encounter for screening for malignant neoplasm of colon (Z12.11) Active confirmed Problem 693172552961189 Preprocedural examination (Z01.818) Active confirmed Problem 098148942 Long-term use of aspirin therapy (Z79.82) Active confirmed Problem CT of abdomen abnormal (93402082665675959 ) Abnormal CT of the abdomen (R93.5) Active confirmed Plan Of Treatment Pending Test Test Name Order Date BUN 12/09/2020 CREATININE 12/09/2020 LIVER PROFILE 12/09/2020 LIPASE 12/09/2020 CA 19-9 12/09/2020 CT angio abdomen 12/09/2020 Future Test Test Name Order Date COLONOSCOPY 06/06/2019 Insurance Providers Payer Name Payer Address Payer Phone Subscriber Number Group Number Insured Name Patient Relationship to Insured Coverage Start Date Coverage End Date [facility] [address] [place] [phone] [id number] Kalli Gonzales Self - patient is the insured Medical (General) History Medical History History ICD Code DC in 2016 with 2V CABG Asthma Hypertension Hypercholesterolemia Urinary [...]
== END 2025-03-21 11:37 | disposition home or self-care (01) ==
LOC: HO.HMCHD 10:47
PROVIDERS: PCP Internal Medicine; Visit Provider Internal Medicine
DX: I10 Essential (primary) hypertension (principal); E78.00 Pure hypercholesterolemia, unspecified

== ENCOUNTER → 2025-03-21 10:46 | Outpatient (BNVA) | payer MEDICARE, SELFPAY | PROVIDERS: PCP Internal Medicine; Visit Provider Internal Medicine | DX: E11.9 Type 2 diabetes mellitus without complications (principal); I10 Essential (primary) hypertension; E78.5 Hyperlipidemia, unspecified; J44.9 Chronic obstructive pulmonary disease, unspecified; K21.9 Gastro-esophageal reflux disease without esophagitis; L29.9 Pruritus, unspecified; R17 Unspecified jaundice; Z95.1 Presence of aortocoronary bypass graft | CPT/HCPCS: 99202 ==

== ENCOUNTER 2025-04-14 07:59 | Outpatient (REF) | payer MEDICARE, SELFPAY ==
--- OUTSIDE RECORDS SUMMARY | 2025-04-14 08:02 | XMS_ITS | Patient Health Record ---
Author Organization [facility] Address [address] [place] [address] Care Team Providers Care Herbologist Name Role Phone Noé Hardy MD Primary Care Provider Alonso Brown Unavailable [phone] Allergies Allergen (clinical drug ingredient) Drug/Non Drug Allergy documented on EMR Reaction Allergy Type Onset Date Status aspirin Aspirin Unknown Drug Allergy Active tetracycline Tetracycline HCl Unknown Drug Allergy Active Latex Unknown Drug Allergy Active Reason For Referral No Information Medications Medication SIG (Take, Route, Frequency, Duration) Notes Start Date End Date Status [place] 3-6-9 Orally Active Furosemide 20 MG 1 tablet Orally Once a day Active Montelukast Sodium A ctive Losartan Potassium 100 MG 1 tablet Orall y Once a day Active Baby Aspirin 81 MG 1 tablet Orally Once a day Active Zetia 10 MG TK 1 T PO QD Oral fo r 90 Active Metoprolol Tartrate 25 MG 1 tablet with food Orally Twice a day 06/21/2016 Active Ketorolac Tromethamine 0.5 % INT 1 GTT IN THE LEFT EYE QID STARTING 3 DAYS BEFORE SURGERY Ophthalmic for 40 Not-Taking Advair HFA Active Atorvastatin Calcium 40 MG 1 tablet Orally Once a day Active amLODIPine Besylate 5 MG 1 tablet Orally Once a day Active Ofloxacin 0.3 % INT 1 GTT IN OU QID STARTING 3 DAYS BEFORE SURGERY Ophthalmic for 10 Not-Taking Social History Tobacco use other than smoking: Question Answer Notes Are you an other tobacco user? No Plan Of Treatment Pending Test Test Name Order Date X ray : Foot, left 3V 06/21/2016 42211, J0702- Neuroma/Injection 06/21/20 16 Insurance Providers Payer Name Payer Address Payer Phone Subscriber Number Group Number Insured Name Patient Relationship to Insured Coverage Start Date Coverage End Date [employer] [facility] [address] [facility] [place] [address] [id number] Kalli Gonzales Self - patient is the insured Medical (General) History Medical History History ICD Code asthma Back,Hip,and Knee pain Cataracts Heart disease Hypertension Reflux Measles Mumps Chicken pox Surgical History Surgery Date(Month/Year) knee replacement 2012 lap band 2009 double bypass surgery 2013 foot surgery knee surgery 2013 cataract removal 04/2016
[2025-04-14 09:05] LABS: Bilirubin Direct 0.4 mg/dL (0.0-0.5)
== END 2025-04-14 08:00 | disposition home or self-care (01) ==
LOC: HO.LAB 07:59
PROVIDERS: PCP Internal Medicine; Visit Provider Internal Medicine
DX: R17 Unspecified jaundice (principal); L29.9 Pruritus, unspecified
CPT/HCPCS: 36415; 82248

== ENCOUNTER → 2025-05-12 10:00 | Outpatient (BNV) | payer MEDICARE, SELFPAY | PROVIDERS: PCP Internal Medicine; Referring Provider Internal Medicine; Visit Provider Internal Medicine | DX: Z12.31 Encounter for screening mammogram for malignant neoplasm of breast (principal) | CPT/HCPCS: 77063; 77067 ==

== ENCOUNTER 2025-05-12 10:10 | Outpatient (REF) | payer MEDICARE, SELFPAY ==
--- NOTE | ~2025-05-12 | MM_ITS ---
EXAMINATION: MM SCREENING DIGITAL BREAST TOMOSYNTHESIS, BILATERAL CLINICAL INFORMATION: Screening. Asymptomatic. COMPARISON: Mammography: Comparison is made with available priors TECHNIQUE: Digital breast mammography with tomosynthesis is performed in both the craniocaudal and mediolateral oblique views along with computer-aided detection (CAD). FINDINGS: There are scattered areas of fibroglandular density (ACR BI-RADS breast composition Category b). There are no significant masses, abnormal calcifications, or other abnormalities. MM/MM tomosynthesis screening BI IMPRESSION: No mammographic evidence of malignancy. ASSESSMENT: BI-RADS BI-RADS 1 - Negative RECOMMENDATION: Routine annual mammography screening. 1 year F/U This examination should not preclude the clinical evaluation of a suspicious palpable abnormality. This patient's information was entered into a reminder system with a target due date for their next mammogram. Electronically signed by: Jennifer Gaitan DO 05/20/2025 05:08 PM EDT
--- OUTSIDE RECORDS SUMMARY | 2025-05-12 10:55 | XMS_ITS | Patient Health Record ---
Author Organization [facility] Address [address] [place] [address] Care Team Providers Care Fruit Farmworker Name Role Phone Noé Hardy MD Primary Care Provider Alonso Brown Unavailable [phone] Allergies Allergen (clinical drug ingredient) Drug/Non Drug Allergy documented on EMR Reaction Allergy Type Onset Date Status aspirin Aspirin Unknown Drug Allergy Active tetracycline Tetracycline HCl Unknown Drug Allergy Active Latex Unknown Drug Allergy Active Reason For Referral No Information Medications Medication SIG (Take, Route, Frequency, Duration) Notes Start Date End Date Status [place] 3-6-9 Orally Active Furosemide 20 MG 1 tablet Orally Once a day Active Montelukast Sodium A ctive Losartan Potassium 100 MG 1 tablet Orall y Once a day Active Baby Aspirin 81 MG 1 tablet Orally Once a day Active Zetia 10 MG TK 1 T PO QD Oral; Duration: 90 Active Metoprolol Tartrate 25 MG 1 tablet with food Orally Twice a day 06/21/2016 Active Ketorolac Tromethamine 0.5 % INT 1 GTT IN THE LEFT EYE QID STARTING 3 DAYS BEFORE SURGERY Ophthalmic; Duration: 40 Not-Taking Advair HFA Active Atorvastatin Calcium 40 MG 1 tablet Orally Once a day Active amLODIPine Besylate 5 MG 1 tablet Orally Once a day Active Ofloxacin 0.3 % INT 1 GTT IN OU QID STARTING 3 DAYS BEFORE SURGERY Ophthalmic; Duration: 10 Not-Taking Social History Tobacco use other than smoking: Question Answer Notes Are you an other tobacco user? No Plan Of Treatment Pending Test Test Name Order Date X ray : Foot, left 3V 06/21/2016 79550, J0702- Neuroma/Injection 06/21/20 16 Insurance Providers Payer Name Payer Address Payer Phone Subscriber Number Group Number Insured Name Patient Relationship to Insured Coverage Start Date Coverage End Date [employer] [place] [employer] [facility] [address] [place] [address] [phone] [id number] Kalli Gonzales Self - patient is the insured Medical (General) History Medical History History ICD Code asthma Back,Hip,and Knee pain Cataracts Heart disease Hypertension Reflux Measles Mumps Chicken pox Surgical History Surgery Date(Month/Year) knee replacement 2012 lap band 2009 double bypass surgery 2013 foot surgery knee surgery 2014 cataract removal 04/2016
== END 2025-05-12 10:11 | disposition home or self-care (01) ==
LOC: HO.MAMMO 10:10
PROVIDERS: PCP Internal Medicine; Referring Provider Internal Medicine; Visit Provider Internal Medicine
DX: Z12.31 Encounter for screening mammogram for malignant neoplasm of breast (principal); I10 Essential (primary) hypertension; L30.9 Dermatitis, unspecified; R60.0 Localized edema
CPT/HCPCS: 77063; 77067; 99212

== ENCOUNTER 2025-05-12 15:59 | Outpatient (AMB) | payer MEDICARE, SELFPAY ==
--- NOTE | 2025-05-12 15:10 | MHC.PC.OV ---
Vital Signs 05/12/25 16:06 Height 5 ft 2 in Weight 78.471 kg BMI 31.6 BP 120/62 Blood Pressure Location Lt brachial Position Sitting Respiration 16 Pulse 67 Pulse Source Pulse Oximeter Temp 97.7 F Temp Source Temporal Artery Scan Pulse Oximetry (%) 96 Oxygen Delivery Method Room Air Intake Visit Reasons: BP Check Complex Care Nurse Required: No Accompanied by: Self / Same As Patient Allergies codeine (CODEINE) Allergy (Intermediate, Verified 05/12/25 16:00) JITTERY; NAUSEA latex (LATEX) Allergy (Intermediate, Verified 05/12/25 16:00) ITCHING; RASH tetracycline (Tetracycline) Allergy (Mild, Verified 05/12/25 16:00) DIFFICULTY BREASTHING/SWELLING Codeine Phosphate Allergy (Unknown, Uncoded 06/06/24 11:17) Unknown Latex Gloves Allergy (Unknown, Uncoded 06/06/24 11:17) Unknown Medication List - Last Reconciled 05/12/25 by SILAS Oconnor amlodipine 5 mg PO DAILY betamethasone dipropionate 0.05% 1 appl topical BID PRN carvedilol 12.5 mg PO BID clobetasol 0.05% 1 appl topical .three times weekly 4 weeks ezetimibe 10 mg PO DAILY furosemide 40 mg PO DAILY montelukast 10 mg PO DAILY omeprazole 20 mg PO BID rosuvastatin 40 mg PO DAILY temazepam 30 mg PO BEDTIME PRN valsartan 40 mg PO BID Tobacco use date assessed: 03/21/25 Dental Screening Dental Screen Date: 03/21/25 HPI HPI Comments History of Present Illness Details 84-year-old female with history of hypertension, hyperlipidemia, insomnia, asthma presents to the office today for follow-up. She reached out to the office last week due to significantly elevated blood pressures. At that time, she was advised to increase her valsartan to 40 mg twice daily in addition to the carvedilol 12.5 mg twice daily and amlodipine 5 mg daily. She does note that she had been experiencing significant edema in the bilateral lower extremities. She does take furosemide 40 mg daily. Was unaware that amlodipine can cause lower extremity swelling. She has been checking her blood pressures at home with the highest systolic pressure being 140. No chest pain, shortness of breath, vision changes, headaches, lightheadedness. She is also requesting evaluation of an itchy rash on the upper back that has been ongoing for about a week. Has been using betamethasone cream on this with some effect. Denies any neuropathic pain. ROS: General: No fevers, malaise, unintentional weight loss HEENT: No blurred vision, diplopia. No sore throat, nasal congestion, rhinorrhea, sinus pain, ear pain Cardiovascular: No chest pain, palpitations. See HPI Respiratory: No shortness of breath, wheezing, cough GI: No abdominal pain, nausea, vomiting, diarrhea, constipation, melena, hematochezia : No dysuria, hematuria, increased urinary frequency, decreased urinary output MSK: No myalgia, back pain Neuro: No headaches, weakness, paresthesias Skin: See HPI EXAM: Constitutional - Awake and Alert, No apparent distress Eyes - PERRL Cardiovascular - S1S2, RRR, 2+ ble edema Respiratory - Normal lung expansion, Normal respiratory effort, No respiratory distress, CTA bilaterally Extremities - no calf tenderness bilaterally, no swelling Skin - Warm/Dry. fresh toned papular rash of the right upper back with excoriation Neurological - Alert & oriented x3 Psychological - Appropriate affect [facility] Medical History Hypercholesteremia Hypertension Surgical History History of colonoscopy (~08/02/19) H/O: hysterectomy (Unknown) History of right knee joint replacement History of left knee replacement (03/17/14) Social History Housing: Condominium Patient Tobacco Use Status: Former Tobacco user e-Cigarette/Vaping Use: Never Used Second Hand Smoke Exposure: No service: No Current occupational status: retired Current occupation: Right handed Cognitive needs: No Hearing needs: No Vision needs: Yes Physical exam (Primary Care) Vital Signs: Last Vital Signs Temp 97.7 F 05/12/25 16:06 Pulse 67 05/12/25 16:06 Resp 16 05/12/25 16:06 BP 120/62 05/12/25 16:06 Pulse Ox 96 05/12/25 16:06 Oxygen Delivery Method Room Air 05/12/25 16:06 BMI result Body Mass Index 31.6 Tobacco/Smoking Status: Tobacco use Status Tobacco use date assessed 03/21/25 05/12/25 15:12 Patient Tobacco Use Status Former Tobacco user 05/12/25 15:12 e-Cigarette/Vaping Use Never Used 05/12/25 15:12 Coding Level of Care Code Est Pt Level 4 (33394) Diagnoses Primary hypertension I10 Hypertension type: primary hypertension Dermatitis, unspecified L30.9 Lower extremity edema R60.0 Assessment & Plan Assessment & Plan (1) Hypertension: Code(s): I10 - Essential (primary) hypertension Category: Medical Qualifiers: Hypertension type: primary hypertension Qualified Code(s): I10 - Essential (primary) hypertension Plan: Controlled. However experiencing side effects including edema which is likely related to amlodipine use. Discontinue amlodipine. Increase valsartan to 80 mg twice daily and continue taking carvedilol 12.5 mg twice daily. Low-sodium diet. Can continue checking blood pressures at home (2) Dermatitis, unspecified: Code(s): L30.9 - Dermatitis, unspecified Category: Medical Plan: Etiology unclear. Continue using betamethasone (3) Lower extremity edema: Code(s): R60.0 - Localized edema Category: Medical Plan: Suspect this is related to amlodipine. Can continue using furosemide and can also use compression stockings. Discontinue amlodipine as above Plan Follow-up in the office on 06/20 as scheduled. Medications: New valsartan 80 mg PO BID 180 tabs 1RF
[2025-05-12 16:06] VITALS: BP 120/62; PULSE 67; RESP 16; TEMP 36.5; O2SAT 96; BMI 31.6
== END 2025-05-12 17:01 | disposition home or self-care (01) ==
LOC: HO.HMCHD 16:00
PROVIDERS: PCP Internal Medicine; Visit Provider Physician Assistant
DX: I10 Essential (primary) hypertension (principal); L30.9 Dermatitis, unspecified; R60.0 Localized edema

== ENCOUNTER 2025-05-28 11:39 | Outpatient (AMB) | payer MEDICARE, SELFPAY ==
[2025-05-28 08:56] VITALS: BP 128/80; PULSE 70; TEMP 36.4; O2SAT 96; BMI 30.5
--- NOTE | 2025-05-28 08:56 | A.OFFPC_ITS ---
Vital Signs 05/28/25 08:56 05/28/25 11:50 Height 5 ft 2 in Weight 167 lb BMI 30.5 BP 128/80 130/82 Blood Pressure Location Rt brachial Lt brachial Position Sitting Sitting Pulse 70 Pulse Source Pulse Oximeter Temp 97.6 F Temp Source Axillary Pulse Oximetry (%) 96 Oxygen Delivery Method Room Air Intake Visit Reasons: BP Check Welcome Wagon Hostess Required: No Accompanied by: Self / Same As Patient Allergies codeine (CODEINE) Allergy (Intermediate, Verified 05/28/25 08:56) JITTERY; NAUSEA latex (LATEX) Allergy (Intermediate, Verified 05/28/25 08:56) ITCHING; RASH tetracycline (Tetracycline) Allergy (Mild, Verified 05/28/25 08:56) DIFFICULTY BREASTHING/SWELLING Codeine Phosphate Allergy (Unknown, Uncoded 06/06/24 11:17) Unknown Latex Gloves Allergy (Unknown, Uncoded 06/06/24 11:17) Unknown Tobacco use date assessed: 05/28/25 Fall risk assessment: No Falls in past year Last assessed Fall Risk: 05/28/25 Dental Screening Dental Screen Date: 05/28/25 Did you have a dental visit in the last 12 months?: Yes Did you have a dental problem in the last 6 months where you did not have access to dental care?: No PFSH Medical History Hypercholesteremia Hypertension Surgical History History of colonoscopy (~08/02/19) H/O: hysterectomy (Unknown) History of right knee joint replacement History of left knee replacement (03/17/14) Family History Mother No problems noted. Father No problems noted. Social History Housing: Condominium Patient Tobacco Use Status: Former Tobacco user e-Cigarette/Vaping Use: Never Used Second Hand Smoke Exposure: No service: No Current occupational status: retired Current occupation: Right handed Cognitive needs: No Hearing needs: No Vision needs: Yes Questionnaire PHQ-9 Over the last 2 weeks, how often have you been bothered by any of the following problems? 1. Little interest or pleasure in doing things: not at all 2. Feeling down, depressed, or hopeless: nearly every day 3. Trouble falling or staying asleep, or sleeping too much: not at all 4. Feeling tired or having little energy: not at all 5. Poor appetite or overeating: not at all 6. Feeling bad about yourself - or that you are a failure or have let yourself or your family down: not at all 7. Trouble concentrating on things, such as reading the newspaper or watching television: not at all 8. Moving or speaking so slowly that other people could have noticed. Or the opposite - being so fidgety or restless that you have been moving around a lot more than usual: not at all 9. Thoughts that you would be better off or of hurting yourself in some way: not at all Total score: 3 Source: Developed by Drs. Skyler Washington, Ember Paulson, Riley Urñea and colleagues, with an educational alberto from [employer]. Thrive Questionnaire Date Thrive assessed: 05/28/25 I am a: Patient Within the past 12 months, did the food you bought not last and you didn't have the money to get more?: Never true Within the past 12 months, did you worry whether your food would run out before you got money to buy more?: Never true Do you have trouble paying for medicines?: No Do you have trouble getting transportation to medical appointments?: No Do you have trouble paying your heating and electricity bill?: No Do you have trouble taking care of your child, family member or friend?: No Do you have trouble with day-to-day activities such as bathing, preparing meals, shopping, managing finances, etc.?: No Are you currently unemployed and looking for a job?: No Are you interested in more education?: No THRIVE Score: 0 AUDIT C Alcohol Use Questionnaire (AUDIT-C) 1. How often do you have a drink containing alcohol?: Never 3. How often do you have six or more drinks on one occasion?: Never Total Score: 0 CANDELARIA-7 AMB Questionnaire CANDELARIA-7 Date CANDELARIA - 7 assessed: 05/28/25 Feeling nervous, anxious, or on edge: 1 = Several days Not being able to stop or control worryin = Not at all Worrying too much about different things: 0 = Not at all Trouble relaxin = Not at all Being so restless that it is hard to sit still: 0 = Not at all Becoming easily annoyed or irritable: 0 = Not at all Feeling afraid as if something awful might happen: 0 = Not at all Total CANDELARIA-7 score (0-4 normal; 5-9 mild; 10-14 moderate; 15-21 severe): 1 Source: Developed by Drs. Skyler Washington, Ember Paulson, Riley Ureña and colleagues, with an educational alberto from [employer]. Physical exam (Primary Care) Vital Signs: Last Vital Signs Temp 97.6 F 05/28/25 08:56 Pulse 70 05/28/25 08:56 BP 130/82 05/28/25 11:50 Pulse Ox 96 05/28/25 08:56 Oxygen Delivery Method Room Air 05/28/25 08:56 BMI result Body Mass Index 30.5 Tobacco/Smoking Status: Tobacco use Status Tobacco use date assessed 05/28/25 05/28/25 08:57 Patient Tobacco Use Status Former Tobacco user 05/28/25 08:57 e-Cigarette/Vaping Use Never Used 05/28/25 08:57 PHQ-9: PHQ-9 Score PHQ-9: Total score 0 05/28/25 11:51 Thrive Assessment: Date of Thrive Assessment Date Thrive assessed 05/28/25 05/28/25 08:57 Coding Level of Care Code Est Pt Level 4 (26133) Complex EM visit Add On G2211 Diagnoses Primary hypertension I10 Hypertension type: primary hypertension Assessment & Plan Assessment & Plan (1) Hypertension: Code(s): I10 - Essential (primary) hypertension Category: Medical Qualifiers: Hypertension type: primary hypertension Qualified Code(s): I10 - Essential (primary) hypertension Plan: History of Present Illness - The patient is an 84-year-old female presenting with peripheral edema and concerns regarding blood pressure management. - Peripheral edema: The patient reported swelling in her legs, which resolved after discontinuation of amlodipine. - Essential hypertension: The patient was initially on 40 mg of valsartan, which was increased to 160 mg daily. She noted elevated blood pressure readings at home, reaching up to 189 mmHg, but with a recent decrease to 168 mmHg. - The patient experienced dizziness with the increased dose of valsartan, which she attributes to the higher morning dose. - She plans to discuss her blood pressure management with her nurse, Any, during her upcoming visit. Social History Review of Systems - Cardiovascular: Reports dizziness with increased valsartan dose. Denies chest pain or palpitations. Physical Exam General: Cooperative and healthy appearing Nutritional Appearance: Well nourished Orientation/consciousness: Patient oriented x3 Limitations: No limitations Head: Normal to inspection General: Appearance normal, both eyes and all related structures Neck: Normal visual inspection Chest: Normal palpation of entire chest wall Respiratory: N ormal respiratory effort Neurology: Patient oriented x3, reports dizziness with new medication. Results Plan 1. Peripheral Edema - Discontinuation of amlodipine resolved the edema. 2. Essential Hypertension - The patient is advised to continue monitoring blood pressure and discuss medication adjustments with her nurse. Discussion Notes I discussed with the patient the importance of monitoring her blood pressure and the potential side effects of her current medication regimen. We agreed that she would continue taking her medication as prescribed and follow up with her nurse for further evaluation and potential adjustments. Patient Instructions - Continue taking valsartan as prescribed. - Monitor blood pressure regularly at home. -
[2025-05-28 11:50] VITALS: BP 130/82
--- OUTSIDE RECORDS SUMMARY | 2025-05-28 12:33 | XMS_ITS | Patient Health Record ---
Author Organization [facility] Address [address] [place] [address] Care Team Providers Care Cob Sawyer Name Role Phone Noé Hardy MD Primary Care Provider Alonso Brown Unavailable [phone] Allergies Allergen (clinical drug ingredient) Drug/Non Drug Allergy documented on EMR Reaction Allergy Type Onset Date Status aspirin Aspirin Unknown Drug Allergy Active tetracycline Tetracycline HCl Unknown Drug Allergy Active Latex Unknown Drug Allergy Active Reason For Referral No Information Medications Medication SIG (Take, Route, Frequency, Duration) Notes Start Date End Date Status [place] 3-6-9 Orally Active Furosemide 20 MG 1 [...] X ray : Foot, left 3V 06/21/2016 26457, J0702- Neuroma/Injection 06/21/20 16 Insurance Providers Payer Name Payer Address Payer Phone Subscriber Number Group Number Insured Name Patient Relationship to Insured Coverage Start Date Coverage End Date [employer] [place] [employer]vantage [facility] [address] [facility] [place] [address] [id number] Kalli Gonzales Self - patient is the insured Medical (General) History Medical History History ICD Code asthma Back,Hip,and Knee pain Cataracts Heart disease Hypertension Reflux Measles Mumps Chicken pox Surgical History Surgery Date(Month/Year) knee replacement 2012 lap band 2009 double bypass surgery 2013 foot surgery knee surgery 2014 cataract removal 04/2016
--- OUTSIDE RECORDS SUMMARY | 2025-05-28 12:33 | XMS_ITS | Patient Health Record ---
Author Organization [facility] Address [address] [place] [address] Care Team Providers Care Putty Glazer Name Role Phone Hayley (RETIRED) Noé GONSALVES Primary Care Provide r Skyler Rubi Unavailable [phone] Allergies Allergen (clinical drug ingredient) Drug/Non Drug [...] 81 MG 1 tablet Orally QD Active [id number] 10-320-25 MG 1/2 tablet Orally Once a [...] Problem Status W/U Status Risk Notes Problem [id number] Encounter for screening for malignant neoplasm of colon (Z12.11) Active confirmed Problem [id number] Preprocedural examination (Z01.818) Active confirmed Problem 030408624 Long-term use of aspirin therapy (Z79.82) Active confirmed Problem Abnormal CT of the abdomen (R93.5) [...] Insured Coverage Start Date Coverage End Date [facility] [address] [place] [address] [id number] Kalli Gonzales Self - patient is the insured Medical (General) History Medical History History ICD Code DE in 2015 with 2V CABG Asthma Hypertension [...]
== END 2025-05-28 13:13 | disposition home or self-care (01) ==
LOC: HO.HMCHD 11:39
PROVIDERS: PCP Internal Medicine; Visit Provider Internal Medicine
DX: I10 Essential (primary) hypertension (principal)

== ENCOUNTER → 2025-05-28 11:39 | Outpatient (BNVA) | payer MEDICARE, SELFPAY | PROVIDERS: PCP Internal Medicine; Visit Provider Internal Medicine | DX: I10 Essential (primary) hypertension (principal); Z13.31 Encounter for screening for depression; Z13.39 Encounter for screening examination for other mental health and behavioral disorders | CPT/HCPCS: 96127; 99212 ==

== ENCOUNTER 2025-05-30 08:01 | Outpatient (REF) | payer MEDICARE, SELFPAY ==
--- OUTSIDE RECORDS SUMMARY | 2025-05-30 08:04 | XMS_ITS | Patient Health Record ---
Author Organization [facility] Address [address] [place] [address] Care Team Providers Care Firer Diesel Locomotive Name Role Phone Hayley (RETIRED) Noé GONSALVES Primary Care Provide r Skyler Rubi Unavailable [phone] Allergies Allergen (clinical drug ingredient) Drug/Non Drug [...] 81 MG 1 tablet Orally QD Active [id number]-[id number] 10-320-25 MG 1/2 tablet Orally Once a [...] Problem Status W/U Status Risk Notes Problem [id number] Encounter for screening for malignant neoplasm of colon (Z12.11) Active confirmed Problem [id number] Preprocedural examination (Z01.818) Active confirmed Problem [id number] Long-term use of aspirin therapy (Z79.82) Active [...] Insured Coverage Start Date Coverage End Date [facility] [address] [place] [phone] [id number] Kalli Gonzales Self - patient is the insured Medical (General) History Medical History History ICD Code [place] in 2015 with 2V CABG Asthma Hypertension [...]
--- OUTSIDE RECORDS SUMMARY | 2025-05-30 08:04 | XMS_ITS | Patient Health Record ---
Author Organization [facility] Address [address] [place] [address] Care Team Providers Care Electrician Refinery Name Role Phone Noé Hardy MD Primary Care Provider Alonso Brown Unavailable [phone] Allergies Allergen (clinical drug ingredient) Drug/Non Drug Allergy documented on EMR Reaction Allergy Type Onset Date Status aspirin Aspirin Unknown Drug Allergy Active tetracycline Tetracycline HCl Unknown Drug Allergy Active Latex Unknown Drug Allergy Active Reason For Referral No Information Medications Medication SIG (Take, Route, Frequency, Duration) Notes Start Date End Date Status [place] 3-6-9 Orally Active Furosemide 20 MG 1 [...] X ray : Foot, left 3V 06/21/2016 18423, J0702- Neuroma/Injection 06/21/20 16 Insurance Providers Payer Name Payer Address Payer Phone Subscriber Number Group Number Insured Name Patient Relationship to Insured Coverage Start Date Coverage End Date [employer] [place] [employer]vantage [facility] [address] [place] [address] [id number] Kalli Gonzales Self - patient is the insured Medical (General) History Medical History History ICD Code asthma Back,Hip,and Knee pain Cataracts Heart disease Hypertension Reflux Measles Mumps Chicken pox Surgical History Surgery Date(Month/Year) knee replacement 2012 lap band 2009 double bypass surgery 2013 foot surgery knee surgery 2014 cataract removal 04/2016
[2025-05-30 08:21] LABS: MANUAL DIFF FLAG NO
[2025-05-30 08:36] LABS: Hematocrit 39.4 % (37.0-47.0); Hemoglobin 13.2 g/dl (12.0-16.0); Imm Gran Abs Auto 0.01 X10*3/uL (0.00-0.03); Imm Gran Pct Auto 0.2 % (0.0-0.4); Lymphocytes Absolute Auto 1.7 X10*3/uL (1.2-4.9); Mean Corpuscular HGB Conc 33.5 g/dl (31.0-35.0); Mean Corpuscular Hemoglobin 31.1 pg (27.0-33.0); Mean Corpuscular Volume 92.9 fL (80.0-98.0); NRBC Abs Auto 0.000 X10*3/uL (0.0-0.012); NRBC Pct Auto 0.0 /100WBC (0.0-0.2); Platelet Count 197 X10*3/uL (160-400); Red Blood Count 4.24 X10*6/uL (4.20-5.50); White Blood Count 5.9 X10*3/uL (4.8-10.8)
[2025-05-30 08:42] LABS: Hemoglobin A1C 156.9914 umol/L; Total Hemoglobin (HGBA1C) 3474.5838 umol/L
[2025-05-30 09:15] LABS: Alanine Aminotransferase 34 U/L (0-31); Albumin Level 4.1 g/dL (3.5-5.0); Alkaline Phosphatase 76 U/L (39-117); Anion Gap 11 (12-20); Aspartate Amino Transferase 42 U/L (5-31); Blood Urea Nitrogen 38 mg/dL (9-16); Calcium 8.9 mg/dL (8.4-10.2); Carbon Dioxide 26 mmol/L (22-29); Chloride 109 mmol/L (96-108); Cholesterol 152 mg/dL (<200); Estimated Glomerular Filt Rate 35; HDL Cholesterol 40 mg/dL (>40); Potassium 4.3 mmol/L (3.3-5.1); Sodium 142 mmol/L (135-145); Total Protein 6.8 g/dL (6.5-8.0); Triglycerides 113 mg/dL (<150)
== END 2025-05-30 08:02 | disposition home or self-care (01) ==
LOC: HO.LAB 08:01
PROVIDERS: PCP Internal Medicine; Visit Provider Internal Medicine
DX: L29.9 Pruritus, unspecified (principal); I10 Essential (primary) hypertension; E78.00 Pure hypercholesterolemia, unspecified; R17 Unspecified jaundice
CPT/HCPCS: 36415; 80053; 80061; 83036; 84443; 85025

== ENCOUNTER 2025-07-04 08:27 | Outpatient (AMB) | payer MEDICARE, SELFPAY ==
--- NOTE | 2025-07-04 08:29 | MHC.PC.OV ---
Vital Signs 07/04/25 08:36 07/04/25 08:58 Height 5 ft 2 in Weight 74.389 kg BMI 30.0 BP 124/72 Pulse 64 Pulse Source Pulse Oximeter Temp 97.4 F Temp Source Temporal Artery Scan Pulse Oximetry (%) 99 Oxygen Delivery Method Room Air Intake Visit Reasons: blood pressure f/u Paraprofessional Aide Teacher Required: No Accompanied by: Daughter Allergies codeine (CODEINE) Allergy (Intermediate, Verified 07/04/25 08:30) JITTERY; NAUSEA latex (LATEX) Allergy (Intermediate, Verified 07/04/25 08:30) ITCHING; RASH tetracycline (Tetracycline) Allergy (Mild, Verified 07/04/25 08:30) DIFFICULTY BREASTHING/SWELLING Codeine Phosphate Allergy (Unknown, Uncoded 07/04/25 08:30) Unknown Latex Gloves Allergy (Unknown, Uncoded 07/04/25 08:30) Unknown Medication List - Last Reconciled 07/04/25 by SILAS Oconnor betamethasone dipropionate 0.05% 1 appl topical BID PRN carvedilol 12.5 mg PO BID epinephrine (EpiPen) 0.3 mg (0.3 mL) IM Q10M PRN ezetimibe 10 mg PO DAILY furosemide 40 mg PO DAILY losartan 50 mg PO DAILY montelukast 10 mg PO DAILY polymyxin B sulf-trimethoprim 10,000 unit- 1 mg/mL 1 drp ophthalmic (eye) Q3H 7 days rosuvastatin 40 mg PO DAILY temazepam 30 mg PO BEDTIME PRN Tobacco use date assessed: 05/28/25 Dental Screening Dental Screen Date: 05/28/25 HPI HPI Comments History of Present Illness Details 84-year-old female with history of hypercholesterolemia, hypertension, CAD s/p CABG, GERD, type 2 diabetes, asthma presents to the office today accompanied by her daughter for evaluation. CAD/Hypertension/HLD-was started on valsartan 80 mg twice daily due to significant edema related to amlodipine which was then discontinued. She was continued on Coreg 12.5 mg twice daily and Lasix 40 mg daily and Lasix 80 mg daily alternating every other day. She did have some insurance issues so had been cutting her valsartan and half, taking 40 mg twice daily along with her other medications. Blood pressure ultimately was 108/78. 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 She brings record of blood pressures. Blood pressures then did increase up to 163/70 but she was on prednisone at that time. Prednisone was discontinued 5 days ago. Continues on statin. Blood pressure in the office today is 124/70. Follows with Dr. Mike Type 2 diabetes-last hemoglobin A1c 6.3%. Not on medication Asthma-no inhalers, stable GERD-discontinued omeprazole over concerns of side effects as she had been on this for 2 years. She does report her reflux symptoms are relatively well controlled and manageable to with Tums Concerns: Lightheadedness-longstanding. Reports this is positional when sitting to standing. She reports she does drink plenty of water. She is on furosemide and also takes temazepam at bedtime. Has not syncopized. No associated symptoms including palpitations, shortness of breath, vision changes, headache, chest pains. No room spinning dizziness. [employer] did perform orthostatic vital signs with a are uncertain of the results and did order a Holter monitor. Orthostatic vital signs in the office: Lying 145/63, HR 55 Sitting 142/65, HR 57 Standing 129/59, HR 62 Allergy-reports she was stung by a bee and upper half of her torso became swollen and red with pruritus. No urticaria or anaphylaxis symptoms. No known history of severe be allergy Appetite- decreased appetite since having COVID 19. Food does not taste good though bartlett try to eat. The last few times she felt sick and had to lay down. Report early say she 82. No unintentional weight loss ( Weight loss noted in system was related to edema and has stabilized:. No abdominal pain, nausea, vomiting, change in bowel habits, melena, hematochezia. ROS: General: No fevers, malaise, unintentional weight loss HEENT: No blurred vision, diplopia. No sore throat, nasal congestion, rhinorrhea, sinus pain, ear pain Cardiovascular: No chest pain, palpitations, or leg edema Respiratory: No shortness of breath, wheezing, cough GI: See HPI : No dysuria, hematuria, increased urinary frequency, decreased urinary output MSK: No myalgia, back pain Neuro: No headaches, weakness, paresthesias Skin: No rashes or lesions EXAM: Constitutional - Awake and Alert, No apparent distress Eyes - PERRL Cardiovascular - S1S2, RRR, No edema Respiratory - Normal lung expansion, Normal respiratory effort, No respiratory distress, CTA bilaterally Extremities - no calf tenderness bilaterally, no swelling Skin - Warm/Dry Neurological - Alert & oriented x3 Psychological - Appropriate affect PFSH Medical History Hypercholesteremia Hypertension Surgical History History of colonoscopy (~08/02/19) H/O: hysterectomy (Unknown) History of right knee joint replacement History of left knee replacement (03/17/14) Family History (Updated 05/28/25 @ 11:58 by Summer Mcrae MA) Mother No problems noted. Father No problems noted. Social History Housing: Condominium Patient Tobacco Use Status: Former Tobacco user e-Cigarette/Vaping Use: Never Used Second Hand Smoke Exposure: No service: No Current occupational status: retired Current occupation: Right handed Cognitive needs: No Hearing needs: No Vision needs: Yes Questionnaire Thrive Questionnaire Date Thrive assessed: 05/28/25 CANDELARIA-7 AMB Questionnaire CANDELARIA-7 Date CANDELARIA - 7 assessed: 05/28/25 Source: Developed by Drs. Skyler Washington, Ember Paulson, Riley Ureña and colleagues, with an educational alberto from [employer]. Physical exam (Primary Care) Vital Signs: Last Vital Signs Temp 97.4 F 07/04/25 08:36 Pulse 64 07/04/25 08:36 Pulse Ox 99 07/04/25 08:36 Oxygen Delivery Method Room Air 07/04/25 08:36 BMI result Body Mass Index 30.0 Tobacco/Smoking Status: Tobacco use Status Tobacco use date assessed 05/28/25 07/04/25 08:31 Patient Tobacco Use Status Former Tobacco user 07/04/25 08:31 e-Cigarette/Vaping Use Never Used 07/04/25 08:31 Thrive Assessment: Date of Thrive Assessment Date Thrive assessed 05/28/25 07/04/25 08:31 Coding Level of Care Code Est Pt Level 4 (07585) Complex EM visit Add On G2211 Diagnoses Primary hypertension I10 Hypertension type: primary hypertension Bee sting allergy Z91.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 Continue carvedilol 12.5 mg twice daily, losartan 50 mg daily, Lasix 40 mg daily. 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 Otherwise recommend Benadryl and Pepcid or prednisone if needed (3) Lightheadedness: Code(s): R42 - Dizziness and giddiness Category: Medical Plan: Slight drop in blood pressure from sitting to standing but no orthostatic hypotension. Advised to keep hydration status up. Possibly related to Lasix, advised to contact Cardiology office. Holter monitor as ordered by Cardiology. Symptoms were short-lived, advised to utilize caution when changing positions, continue current antihypertensives. Contact the office for any worsening symptoms (4) Early satiety: Code(s): R68.81 - Early satiety Category: Medical Plan: No alarm symptoms at this time. Monitor weights. Will refer to Gastroenterology for further evaluation and management Plan Follow-up in the office in 3-4 months. Labs ordered to be performed today as well as several days prior to next appointment Orders: Orders Basic Metabolic Panel Today I10 - Essential (primary) hypertension Lipid Panel 3 Months E11.9 - Type 2 diabetes mellitus without complications, E78.00 - Pure hypercholesterolemia, unspecified, I10 - Essential (primary) hypertension, I25.10 - Atherosclerotic heart disease of [place] coronary artery without angina pectoris, Z95.1 - Presence of aortocoronary bypass graft Liver Panel 3 Months E11.9 - Type 2 diabetes mellitus without complications, E78.00 - Pure hypercholesterolemia, unspecified, I10 - Essential (primary) hypertension, I25.10 - Atherosclerotic heart disease of [place] coronary artery without angina pectoris, Z95.1 - Presence of aortocoronary bypass graft Basic Metabolic Panel 3 Months E11.9 - Type 2 diabetes mellitus without complications, E78.00 - Pure hypercholesterolemia, unspecified, I10 - Essential (primary) hypertension, I25.10 - Atherosclerotic heart disease of [place] coronary artery without angina pectoris, Z95.1 - Presence of aortocoronary bypass graft Hemoglobin A1c 3 Months E11.9 - Type 2 diabetes mellitus without complications, E78.00 - Pure hypercholesterolemia, unspecified, I10 - Essential (primary) hypertension, I25.10 - Atherosclerotic heart disease of [place] coronary artery without angina pectoris, Z95.1 - Presence of aortocoronary bypass graft Medications: New epinephrine (EpiPen) for 2 doses 0.3 mg (0.3 mL) IM Q10M PRN 1 ea 0RF anaphylaxis
[2025-07-04 08:36] VITALS: PULSE 64; TEMP 36.3; O2SAT 99
[2025-07-04 08:58] VITALS: BP 124/72
--- OUTSIDE RECORDS SUMMARY | 2025-07-04 09:17 | XMS_ITS | Patient Health Record ---
Author Organization [facility] Address [address] [facility] [place] [address] Care Team Providers Care Waxing Machine Operator Name Role Phone Any Hanna Primary Care Provider Aimee Peralta Unavailable [phone] Allergies Allergen (clinical drug ingredient) Drug/Non Drug Allergy documented on EMR Reaction Allergy Type Onset Date Status aspirin Aspirin Unknown Drug Allergy Active tetracycline Tetracycline HCl Unknown Drug Allergy Active Latex Unknown Drug Allergy Active Reason For Referral No Information Medications Medication SIG (Take, Route, Frequency, Duration) Notes Start Date End Date Status [place] 3-6-9 Orally Active Furosemide 20 MG 1 [...] Are you an other tobacco user? No Encounters Encounter Location Date Provider Diagnosis [address] [address] 06/26/2025 Aimee Benites Plan Of Treatment Pending Test Test Name Order Date X ray : Foot, left 3V 06/21/2016 24462, J0702- Neuroma/Injection 06/21/20 16 Next Appt Details Provider Name:Aimee vaughn, 07/24/2025 08:30:00 AM, [address] [place] [address], [place], [address], Insurance Providers Payer Name Payer Address Payer Phone Subscriber Number Group Number Insured Name Patient Relationship to Insured Coverage Start Date Coverage End Date [employer] [place] Medicare [employer]vantage [address] [place] [address] [id number] Kalli Gonzales Self - patient is the insured Medical (General) History Medical History History ICD Code asthma Back,Hip,and Knee pain Cataracts Heart disease Hypertension Reflux Measles Mumps Chicken pox Surgical History Surgery Date(Month/Year) knee replacement 2012 lap band 2009 double bypass surgery 2013 foot surgery knee surgery 2014 cataract removal 04/2016
--- OUTSIDE RECORDS SUMMARY | 2025-07-04 09:18 | XMS_ITS | Patient Health Record ---
Author Organization [facility] Address [address] [place] [address] Care Team Providers Care [employer] Officer Name Role Phone Hayley (RETIRED) Noé GONSALVES Primary Care Provide r Skyler Rubi Unavailable [phone] Allergies Allergen (clinical drug ingredient) Drug/Non Drug [...] 81 MG 1 tablet Orally QD Active [id number]-[id number]-LDLA 10-320-25 MG 1/2 tablet Orally Once a [...] Problem Status W/U Status Risk Notes Problem [id number] Encounter for screening for malignant neoplasm of colon (Z12.11) Active confirmed Problem [id number] Preprocedural examination (Z01.818) Active confirmed Problem 305207569 Long-term use of aspirin therapy (Z79.82) Active [...] Insured Coverage Start Date Coverage End Date [facility] [address] [place] [phone] [id number] Kalli Gonzales Self - patient is the insured Medical (General) History Medical History History ICD Code SD in [...]
== END 2025-07-04 09:23 | disposition home or self-care (01) ==
LOC: HO.HMCHD 08:27
PROVIDERS: PCP Internal Medicine; Visit Provider Physician Assistant
DX: I10 Essential (primary) hypertension (principal); Z91.030 Bee allergy status; R42 Dizziness and giddiness; R68.81 Early satiety

== ENCOUNTER → 2025-07-04 08:27 | Outpatient (BNVA) | payer MEDICARE, SELFPAY | PROVIDERS: PCP Internal Medicine; Visit Provider Physician Assistant | DX: I10 Essential (primary) hypertension (principal); I25.10 Atherosclerotic heart disease of native coronary artery without angina pectoris; E78.00 Pure hypercholesterolemia, unspecified; R68.81 Early satiety; Z95.1 Presence of aortocoronary bypass graft; Z91.030 Bee allergy status | CPT/HCPCS: 99212 ==

== ENCOUNTER 2025-07-04 09:28 | Outpatient (REF) | payer MEDICARE, SELFPAY ==
[2025-07-04 13:01] LABS: Anion Gap 13 (12-20); Blood Urea Nitrogen 38 mg/dL (9-16); Calcium 9.3 mg/dL (8.4-10.2); Carbon Dioxide 28 mmol/L (22-29); Chloride 103 mmol/L (96-108); Estimated Glomerular Filt Rate 40; Potassium 4.0 mmol/L (3.3-5.1); Sodium 140 mmol/L (135-145)
== END 2025-07-04 09:29 | disposition home or self-care (01) ==
LOC: HO.10HDL 09:28
PROVIDERS: Visit Provider Physician Assistant
DX: I10 Essential (primary) hypertension (principal)
CPT/HCPCS: 36415; 80048